=== PATIENT | male | born 1990 | race Caucasian/White ===

== ENCOUNTER 2017-07-08 16:05 | Inpatient (IN) | payer OTHER ==
[~2017-07-08] VITALS: Ht 180.3 cm; Wt 50.3 kg
[2017-07-08 16:11] VITALS: BP 113/69; PULSE 100; RESP 23; O2SAT 100
[2017-07-08] MEDS ORDERED: 0.9% Sodium Chloride 1,000 ML IV ONE ×2 (16:24→17:35)
--- NOTE | 2017-07-08 16:24 | ED.REPORT ---
HPI-Abd Pain M Under 40 Date of Service Jul 08, 2017 ED Provider: Minesh Martínez MD Pt is a 26 y/o male with a history of Crohn's disease who presents to the ED c/ o worsening Crohn's symptoms onset last few months. Additional symptoms include abdominal pain, chills, subjective fever, nausea, decreased appetite, diarrhea, weakness, and hematochezia. He denies vomiting, cough, or back pain. He states he has lost about 30 lbs in the last few months. He denies seeing a doctor for his symptoms. Nursing Notes Stated Complaint: CROHN'S DISEASE, RECTAL BLEEDING, ABD PAIN Chief Complaint: Male Abdominal Pain Nursing Notes Reviewed: Yes Allergies: Coded Allergies: oxycodone (Verified Allergy, Intermediate, VOMIT AND MIGRAINES, 07/08/17) Scheduled PRN Acetaminophen (Extra Strength Non-Aspirin) 500 Mg Tablet 2 EACH PO Q4H PRN PRN For Pain General Time Seen by MD: 16:22 Chief Complaint Abdominal pain Hx Obtained From: Patient Sudden in Onset?: No Symptom Duration: Intermittent Location: : Diffuse Quality: Painful Severity: Current: Moderate Severity: Maximum: Severe Recent Healthcare: No recent doctor visit, No recent hospitalization Similar Sx Previous: Yes Past Medical History Past Medical History Notes: Lived in [place] intermittently for 10 years No PCP Past Medical History Crohn's disease, diagnosed at 18 Smoking History Current Every Day Smoker Social History Alcohol Use: "Social" Drug Use: THC Ambulatory Status Independent Review of Systems Decreased appetite Constitutional: Reports: Chills, Fever (subjective), Weakness - generalized Respiratory: Denies: Non-productive cough, Prod cough, clear GI: Reports: Abdominal pain, Diarrhea, Hematochezia, Nausea, Denies: Vomiting Musculoskeletal: Denies: Back pain Complete sys rev & neg: except as marked. Physical Exam Initial Vital Signs Vital Signs (First) Date Time Temp Pulse Resp B/P Pulse Ox O2 Delivery O2 Flow Rate FiO2 07/08/17 16:11 37.2 100 23 113/69 100 Room Air Initial VS: Reviewed Skin: Warm, Dry, No cyanosis Neurologic: Alert, Oriented, Nonfocal Psychiatric: Mood/affect normal, Behavior normal, Normal thought content General/Constitutional: Awake, Alert Appearance / Presentation: Positive: Cachectic Respiratory / Chest: Atraumatic, Breath sounds NL, Breath sounds = bilat, No respiratory distress Cardiovascular: Heart rate NL, Regular rhythm, Heart sounds NL, No gallop, No murmurs, No rubs Abdomen: Atraumatic, Soft Tenderness/Guarding/Rebound: Positive: Tender diffuse Back: Inspection NL, Full range of motion ENT: Atraumatic, Airway patent Mouth: Positive: Mucous membranes dry Dental / Gums: Positive: Dentition poor Rectum / Perineum: No gross blood, No fecal impaction Hemorrhoid present, non-thrombosed Rectal exam: Tender No stool encountered Mucus present, guaiac negative Interpretation & Diagnostics Lab Results Interpretation Result Diagram: 07/08/17 1659 07/08/17 1659 Test 07/08/17 16:59 07/08/17 17:00 White Blood Count 12.1th/mm3 (3.8-10.1) Red Blood Count 4.44mil/mm3 (4.40-5.80) Hemoglobin 8.4g/dL (13.8-17.2) Hematocrit 28.6% (41.0-50.0) Mean Corpuscular Volume 64.4fL (81-100) Mean Corpuscular Hemoglobin 18.9pg (27.0-35.0) Mean Corpuscular Hemoglobin Concent 29.4% (32.0-37.0) Red Cell Distribution Width 17.9% (12.3-15.4) Platelet Count 444bil/L (150-400) Neutrophils (%) (Auto) 89.6% (40-74) Lymphocytes (%) (Auto) 2.2% (14-46) Monocytes (%) (Auto) 7.8% (4-12) Eosinophils (%) (Auto) 0.1% (0-5) Basophils (%) (Auto) 0.1% (0-3) Erythrocyte Sedimentation Rate 35mm/hr (0-15) Reticulocyte Count,Calculated 1.0% (0.6-2.6) Sodium Level 133mEq/L (134-144) Potassium Level 3.6mEq/L (3.5-5.2) Chloride Level 99mEq/L (97-108) Carbon Dioxide Level 19mmol/L (18-29) Blood Urea Nitrogen 8mg/dL (6-20) Creatinine 0.58mg/dL (0.76-1.27) Estimat Glomerular Filtration Rate 183mL/min (>59) Glucose Level 93mg/dL (60-99) Calcium Level 8.4mg/dL (8.5-10.1) Magnesium Level 1.8mg/dL (1.6-2.6) Iron Level 16ug/dL (35-150) Total Iron Binding Capacity 278ug/dL (250-450) Percent Iron Saturation 6%sat (15-50) Unsaturated Iron Binding 261.5ug/dL Ferritin 22ng/mL (30-400) Total Bilirubin 0.2mg/dL (0.0-1.2) Aspartate Amino Transf (AST/SGOT) 12U/L (0-50) Alanine Aminotransferase (ALT/SGPT) 7U/L (0-44) Alkaline Phosphatase 66U/L (25-150) Total Protein 6.9g/dL (6.4-8.4) Albumin 3.3g/dL (3.4-5.0) Lipase 16U/L (13-60) Hold [place] Top Tube Received (Received) CT Abd / Pelvis Interpretation IMPRESSION: 1. Circumferential wall thickening with adjacent inflammatory stranding involving the terminal ileum, colon and rectum. Finding consistent with coloenteritis which is likely related to inflammatory bowel disease or infectious etiologies. 2. Slightly enlarged appendix which could be related to adjacent terminal ileitis, however early manifestation of appendicitis cannot be excluded by imaging. 3. Small amount of pericholecystic fluid. There is clinical concern for cholecystitis, then abdominal ultrasound should be performed for definitive characterization. 4. Nonspecific periportal edema. Dictated by: Nadine Dalton MD, PhD on 07/08/2017 at 19:17 Approved by: Nadine Dalton MD, PhD on 07/08/2017 at 19:24 Study type: Abdominal CT IV contrast Interpretation / Wet Read by: Interpret - Radiologist Re-Eval/Medical Decision Med Decision/Clinical Course 26-year-old male with a pre-existing diagnosis of Crohn's disease. He is presenting with generalized abdominal pain, bloody diarrhea and recent significant weight loss. Patient has been without medical care for approximately one year. He appears malnourished clinically this is reinforced by low albumin, he also has an iron deficiency anemia. Right lower quadrant is quite tender however imaging is most consistent with inflammatory bowel disease. GI has been consulted, we will not initiate steroids at this point stool studies are stent and he started on oral Cipro and Flagyl. Will be admitted to the hospitalist service with GI consultation. Appendicitis is considered and imaging findings that demonstrate a mildly enlarged appendix are noted however there is significant and inflammation of the entire colon and inflammatory bowel disease is felt to be much more likely the etiology of his symptoms. Source of Hx: Old records Re-Evaluation/Progress : Time of Eval: 20:05 Patient Status: Condition improved Re-Evaluation/Progress Note: Patient rechecked. Discussed plan for admission. Patient understands and agrees with plan. All questions addressed at this time. Consultation #1: Referral / Consult Name: Luís Loredo MD Call Returned at: 20:03 Oracle Programmer Analyst: Agrees with eval, Agrees with plan Note: Discussed pt's case with ethics officer, Dr. Loredo. Recommends Cipro and Flagyl, GI visit, and need for admission. Consultation #2: Referral / Consult Name: Jim Granados MD Consulted With: Hospitalist Call Returned at: 20:13 Oracle Programmer Analyst: Will see patient, Agrees with plan, Accepts admit Note: Discussed pt's case with hospitalist, Dr. Granados. He accepts admission. Consultation #3: Referral / Consult Name: Isabella Grajeda MD Consulted With: Trauma surgeon Call Returned at: 20:16 Oracle Programmer Analyst: Agrees with eval, Agrees with plan Note: Discussed pt's case with trauma surgeon, Dr. Grajeda. Not planning to consult at present after reviewing imaging. Counseled Regarding: Diagnosis, Lab results, Need for admission Patient Discharge & Departure Primary Impression: Exacerbation of Crohn's disease Digestive disease complication type: unspecified complication Qualified Code : K50.919 - Crohn's disease, unspecified, with unspecified complications Additional Impressions: Malnutrition Iron deficiency anemia Iron deficiency anemia type: unspecified iron deficiency Qualified Code: D50.9 - Iron deficiency anemia, unspecified Generalized abdominal pain Disposition: ADMITTED TO HOSPITAL Discharge Condition All VS Reviewed: Yes Condition: Stable Scribe Attestation Portions of this note were transcribed by Nichelle Otto. I, Dr. Martínez, personally performed the history, physical exam and medical decision-making; I reviewed and confirmed the accuracy of the information in the transcribed note. Minesh Martíenz MD Jul 08, 2017 16:24 Nichelle Otto Jul 08, 2017 17:27
[2017-07-08] MEDS ORDERED: Ondansetron 2 mg/mL 2 mL Inj IVPUSH PRN (16:25)
[2017-07-08] MEDS: HYDROmorphone 0.5 mg/0.5 mL iSecure Syringe IVPUSH PRN ×4 (16:39→23:22)
[2017-07-08 17:06] LABS: EOSINOPHILS % (AUTO) 0.1 % (0-5); Mean Corpuscular Volume 64.4 fL (81-100)
[2017-07-08 17:13] LABS: BASOPHILS % (AUTO) 0.1 % (0-3); MONOCYTES % (AUTO) 7.8 % (4-12); Mean Corpuscular Hemoglobin 18.9 pg (27.0-35.0); NEUTROPHILS % (AUTO) 89.6 % (40-74); Platelet Count 444 bil/L (150-400)
[2017-07-08 17:24] LABS: Magnesium 1.8 mg/dL (1.6-2.6)
[2017-07-08] MEDS ORDERED: Iohexol 300 mg/mL 30 mL Inj PO ONE (17:35)
[2017-07-08 17:40] VITALS: BP 103/67; PULSE 95; RESP 16; O2SAT 100
--- NOTE | 2017-07-08 19:26 | DRSVH ---
PROCEDURE: CT ABDOMEN AND PELVIS WITH CONTRAST ([id number]) INDICATIONS: abd pain, chrons TECHNIQUE: After the administration of intravenous contrast, 5 mm thick sections acquired from the diaphragm to the symphysis. 5 mm coronal and sagittal reformats were acquired. For radiation dose reduction, the following was used: automated exposure control, adjustment of mA and/or kV according to patient siz e. COMPARISON: None. FINDINGS: Image quality: Excellent. ABDOMEN: Lung bases: Lung bases are clear. Heart size is normal. Solid organs: Liver and spleen are normal in size and enhancement. Gallbladder is contracted, but g rossly normal. Small amount of pericholecystic fluid is noted.. Biliary system is non dilated. Mueller creas enhances normally. No adrenal nodules. Kidneys demonstrate normal size and enhancement, witho ut hydronephrosis. Peritoneum and bowel: Circumferential wall thickening involving the colon, terminal ileum and rectum noted. Mild inflammatory changes noted adjacent to the colon and terminal ileum. The appendix is f luid-filled and is slightly enlarged measuring 9 mm in diameter. Nodes and vessels: No retroperitoneal or mesenteric adenopathy by size criteria. Aorta and inferior vena cava are normal in size. Miscellaneous: No ventral hernias. PELVIS: Genitourinary: Bladder wall thickness is normal. Miscellaneous: No inguinal hernias or adenopathy. Bones: No suspicious bony lesions. No vertebral body compression fractures. IMPRESSION: 1. Circumferential wall thickening with adjacent inflammatory stranding involving the terminal ileum , colon and rectum. Finding consistent with coloenteritis which is likely related to inflammatory ariadne wel disease or infectious etiologies. 2. Slightly enlarged appendix which could be related to adjacent terminal ileitis, however early man ifestation of appendicitis cannot be excluded by imaging. 3. Small amount of pericholecystic fluid. There is clinical concern for cholecystitis, then abdomin al ultrasound should be performed for definitive characterization. 4. Nonspecific periportal edema. Dictated by: Nadine Dalton MD, PhD on 07/08/2017 at 19:17 Approved by: Nadine Dalton MD, PhD on 07/08/2017 at 19:24
[2017-07-08] MEDS ORDERED: ACET-2561 PO (20:16)
[2017-07-08] MEDS ORDERED: Alum-Mag Hydrox-Simeth 30 mL Suspension PO PRN (20:20)
[2017-07-08] MEDS ORDERED: Polyethylene Glycol (PEG) 17 Gm Powder PO PRN (20:20)
[2017-07-08 20:28] VITALS: BP 108/65; PULSE 85; RESP 16; O2SAT 100
--- NOTE | 2017-07-08 20:33 | PCM.HPMED ---
Subjective Date of Service Jul 08, 2017 Primary Provider: Admitting Physician: Primary Care Physician: Juliane Attending Physician: Admit Status: From the Emergency Department, Full Admit, Non-Telemetry Chief Complaint: Abdominal pain History of Present Illness: David Maravilla is a 26 yo male with a history of Crohn's disease who presents to the Emergency department c/o worsening Crohn's symptoms onset last few months. The abdominal pain is located in the right lower quadrant and sometimes left side as well, sharp in character "like glasses poking me" without any radiation , no clear exacerbating or alleviating factors. Other associated symptoms includes chills, subjective fever, nausea, decreased appetite, diarrhea, weakness, and occasional hematochezia. He denies vomiting, cough, or back pain. He states he has lost about 30 lbs in the last few months. 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 He was on Pentasa but could not swallow the large pills and stopped taking it years ago. Case discussed with Dr Martínez, he spoke to Dr Loredo he recommended antibiotics and admission. No steroids was recommended. Review of Systems: Pertinent positives as noted in HPI. All other systems were reviewed and are negative Allergies Coded Allergies: oxycodone (Verified Allergy, Intermediate, VOMIT AND MIGRAINES, 07/08/17) Home Medications None reported PMH Crohn's disease Surgical History None Family History Both parents had Inflammatory bowel disease Social History Hx Alcohol Use: Yes (once a month) Hx Substance Use: Yes (marijuana) Hx Tobacco Use: Yes Smoking Status: Current Every Day Smoker Living Arrangement: with Family Exam Vital Signs Vital Sign - Last Date Time Temp Pulse Resp B/P Pulse Ox O2 Delivery O2 Flow Rate FiO2 07/08/17 17:40 95 16 103/67 100 07/08/17 16:11 37.2 Room Air Exam General: Alert, Oriented X3, Cooperative, No acute Distress Eyes: PERRLA, Scleral Anicteric Mouth: Mouth Normal, Mucous Membranes Moist/[place]. No oral ulcers Neck: Supple, no Thyromegaly, trachea central. Chest & Lungs: Clear to auscultation & percussion, No adventitious breath sounds, no crackles, no wheeze Cardiovascular: Normal S1, Normal S2, No Murmurs/Rubs/Gallops, Regular Rate/ Rhythm, Pulses: Radial (present and equal), Dorsalis Pedi (present and equal) Abdomen: Soft, mild tenderness in the right lower quad, no rebound or guarding, Non-distended, Normoactive bowel tones. Musculoskeletal: Unremarkable. Normal range of motion, no swollen or erythematous joints Extremities: No edema, no cyanosis, no clubbing. Skin: No rashes. Warm and dry, no erythematous areas Neurological: Grossly neurologically intact, Normal Speech, Sensation Intact Lymphatic: Lymph nodes Cervical and Axillary not palpable. Lab and Diagnostics Labs Laboratory Tests Test 07/08/17 16:59 07/08/17 17:00 White Blood Count 12.1th/mm3 (3.8-10.1) Red Blood Count 4.44mil/mm3 (4.40-5.80) Hemoglobin 8.4g/dL (13.8-17.2) Hematocrit 28.6% (41.0-50.0) Mean Corpuscular Volume 64.4fL (81-100) Mean Corpuscular Hemoglobin 18.9pg (27.0-35.0) Mean Corpuscular Hemoglobin Concent 29.4% (32.0-37.0) Red Cell Distribution Width 17.9% (12.3-15.4) Platelet Count 444bil/L (150-400) Neutrophils (%) (Auto) 89.6% (40-74) Lymphocytes (%) (Auto) 2.2% (14-46) Monocytes (%) (Auto) 7.8% (4-12) Eosinophils (%) (Auto) 0.1% (0-5) Basophils (%) (Auto) 0.1% (0-3) Sodium Level 133mEq/L (134-144) Potassium Level 3.6mEq/L (3.5-5.2) Chloride Level 99mEq/L (97-108) Carbon Dioxide Level 19mmol/L (18-29) Blood Urea Nitrogen 8mg/dL (6-20) Creatinine 0.58mg/dL (0.76-1.27) Estimat Glomerular Filtration Rate 183mL/min (>59) Glucose Level 93mg/dL (60-99) Calcium Level 8.4mg/dL (8.5-10.1) Magnesium Level 1.8mg/dL (1.6-2.6) Total Bilirubin 0.2mg/dL (0.0-1.2) Aspartate Amino Transf (AST/SGOT) 12U/L (0-50) Alanine Aminotransferase (ALT/SGPT) 7U/L (0-44) Alkaline Phosphatase 66U/L (25-150) Total Protein 6.9g/dL (6.4-8.4) Albumin 3.3g/dL (3.4-5.0) Lipase 16U/L (13-60) Hold [place] Top Tube Received (Received) Result Diagram: 07/08/17 1659 07/08/17 1659 X-Rays, CTs and MRIs CT ABDOMEN AND PELVIS WITH CONTRAST 07/08 IMPRESSION: 1. Circumferential wall thickening with adjacent inflammatory stranding involving the terminal ileum, colon and rectum. Finding consistent with coloenteritis which is likely related to inflammatory bowel disease or infectious etiologies. 2. Slightly enlarged appendix which could be related to adjacent terminal ileitis, however early manifestation of appendicitis cannot be excluded by imaging. 3. Small amount of pericholecystic fluid. There is clinical concern for cholecystitis, then abdominal ultrasound should be performed for definitive characterization. 4. Nonspecific periportal edema. Dictated by: Nadine Dalton MD, PhD on 07/08/2017 at 19:17 Approved by: Nadine Dalton MD, PhD on 07/08/2017 at 19:24 Assessment & Plan David Maravilla is a 26 yo male with a history of Crohn's disease who presents to the Emergency department c/o worsening Crohn's symptoms 1. Acute on Chronic abdominal pain secondary to Crohn's colitis. Present on admission Differential diagnosis includes Appendicitis (right lower quadrant location with CT scan unable to rule this out). Patient was on Pentasa but could no tolerate it and has been off this medications for years - nothing by mouth for now - empiric antibiotics with Levaquin and Flagyl IV - stool PCR studies - Gastroenterology consulted, may consider endoscopy to further evaluate - DVT prophylaxis due to increased risk for VTE with Crohn 2 Hyponatremia, Mild. Present on admission Likely represents hypovolemia based on patient's clinical picture - continue IV fluids with Normal saline 3 Malnutrition. Present on admission Albumin 3.3 and BMI 15.4. Patient has been having poor appetite - Nutritional consult requested 4 Chronic Microcytic Anemia Likely Iron deficiency anemia secondary to chronic slow GI bleeding - Iron studies ordered - consider Iron supplementations 5 Nicotine dependence Cessation discussed and encouraged. Patient states he is trying to quit - Nicotine patch upon request - Acetaminophen as needed for mild pain/fever/headache - Bowel regimen as needed - Antiemetic as needed Patient admitted under inpatient status with expected length of stay > 2 midnights for severity of present symptoms, complexities of treatment plan and risk for adverse event . Resuscitation Status: CPR: Attempt Resuscitation Jmi Granados MD Jul 08, 2017 20:33
[2017-07-08] MEDS: 0.9% Sodium Chloride 1,000 ML IV SCH (20:37)
[2017-07-08 20:52] LABS: Unsaturated Iron Binding 261.5 ug/dL
[2017-07-08 21:57] VITALS: BP 103/57; PULSE 75; RESP 16; O2SAT 98
--- NOTE | 2017-07-09 00:15 | NUR ---
Admit to 1026 Pt arrived from ED fully alert and oriented, able to transfer to bed with steady gait. C/o mild abdominal pain tolerable. IV infusing. Reports frequent episodes of diarrhea. Oriented to call light, SCDs, NPO status, hospital routines, plan of care; hourly rounding ongoing.
[2017-07-09 00:32] VITALS: BP 100/57; PULSE 58; RESP 16; O2SAT 98
[2017-07-09] MEDS: Heparin 5,000 Unit/mL Inj SUBQ SCH ×3 (00:35→16:22)
[2017-07-09] MEDS: metroNIDAZOLE Inj 500 MG in IV Premix 1 EACH IV SCH ×3 (02:20→16:21)
[2017-07-09] MEDS: HYDROmorphone 0.5 mg/0.5 mL iSecure Syringe IVPUSH PRN ×5 (02:24→20:05)
[2017-07-09] MEDS: Ondansetron 2 mg/mL 2 mL Inj IVPUSH PRN ×5 (02:30→20:54)
[2017-07-09 05:13] VITALS: BP 95/47; PULSE 72; RESP 16; O2SAT 97
--- NOTE | 2017-07-09 05:16 | NUR ---
Pain Abdominal pain adequately controlled with IV Dilaudid about every 2-3 hours. Pt ambulates safely in room for frequent BR trips, diarrhea continues. Hourly rounding ongoing.
[2017-07-09] MEDS: 0.9% Sodium Chloride 1,000 ML IV SCH (06:46)
[2017-07-09 07:34] LABS: BASOPHILS % (AUTO) 0.2 % (0-3); EOSINOPHILS % (AUTO) 0.3 % (0-5); MONOCYTES % (AUTO) 10.7 % (4-12); Mean Corpuscular Hemoglobin 18.8 pg (27.0-35.0); Mean Corpuscular Volume 65.3 fL (81-100); NEUTROPHILS % (AUTO) 82.9 % (40-74); Platelet Count 379 bil/L (150-400)
[2017-07-09] MEDS: levoFLOXacin Inj 750 MG in IV Premix 1 EACH IV SCH (08:19)
[2017-07-09 09:14] VITALS: BP 100/58; RESP 16; O2SAT 100
--- NOTE | 2017-07-09 11:01 | PCM.PNMED ---
Subjective Date of Service Jul 09, 2017 Subjective Patient seen and examined. Looks weak. Vitals noted Exam Vital Signs Vital Sign - Last Date Time Temp Pulse Resp B/P Pulse Ox O2 Delivery O2 Flow Rate FiO2 07/09/17 09:14 36.9 16 100/58 100 Room Air 07/09/17 05:13 72 Intake and Output 07/08/17 07/08/17 07/09/17 Cumulative From/Thru 15:00 23:00 07:00 07/08/17 16:11 - 07/09/17 06:47 Intake Total 2000 ml 1045 ml 3045 ml Balance 2000 ml 1045 ml 3045 ml Intake Oral 0 ml 0 ml IV Total 2000 ml 1045 ml 3045 ml # Voids 3 3 # Bowel Movements 3 3 Exam General: Alert, Oriented X3, Cooperative, Cachectic Chest & Lungs: Clear to auscultation & percussion, No adventitious breath sounds, no crackles, no wheeze Cardiovascular: Normal S1, Normal S2, No Murmurs/Rubs/Gallops, Regular Rate/ Rhythm, Pulses: Radial (present and equal), Dorsalis Pedi (present and equal) Abdomen: Soft, mild tenderness in the right lower quad, no rebound or guarding, Non-distended, Normoactive bowel tones. Lymphatic: Lymph nodes Cervical and Axillary not palpable. Lab and Diagnostics Result Diagram: 07/09/17 0711 07/09/17 0711 X-Rays, CTs and MRIs CT ABDOMEN AND PELVIS WITH CONTRAST 07/08 IMPRESSION: 1. Circumferential wall thickening with adjacent inflammatory stranding involving the terminal ileum, colon and rectum. Finding consistent with coloenteritis which is likely related to inflammatory bowel disease or infectious etiologies. 2. Slightly enlarged appendix which could be related to adjacent terminal ileitis, however early manifestation of appendicitis cannot be excluded by imaging. 3. Small amount of pericholecystic fluid. There is clinical concern for cholecystitis, then abdominal ultrasound should be performed for definitive characterization. 4. Nonspecific periportal edema. Dictated by: Nadine Dalton MD, PhD on 07/08/2017 at 19:17 Approved by: Nadine Dalton MD, PhD on 07/08/2017 at 19:24 Assessment & Plan David Maravilla is a 26 yo male with a history of Crohn's disease who presents to the Emergency department c/o worsening Crohn's symptoms 1. Acute on Chronic abdominal pain secondary to Crohn's colitis. Present on admission Differential diagnosis includes Appendicitis (right lower quadrant location with CT scan unable to rule this out). Patient was on Pentasa but could no tolerate it and has been off this medications for years - nothing by mouth for now - empiric antibiotics with Levaquin and Flagyl IV - stool PCR studies - Gastroenterology consulted, may consider endoscopy to further evaluate - DVT prophylaxis due to increased risk for VTE with Crohn 2 Hyponatremia, Mild. Present on admission Likely represents hypovolemia based on patient's clinical picture - continue IV fluids with Normal saline 3 Malnutrition. Present on admission Albumin 3.3 and BMI 15.4. Patient has been having poor appetite - Nutritional consult requested - D5NS for now 4 Chronic Microcytic Anemia Likely Iron deficiency anemia secondary to chronic slow GI bleeding - Iron studies ordered - consider Iron supplementations 5 Nicotine dependence Cessation discussed and encouraged. Patient states he is trying to quit - Nicotine patch upon request - Acetaminophen as needed for mild pain/fever/headache - Bowel regimen as needed - Antiemetic as needed Patient admitted under inpatient status with expected length of stay > 2 midnights for severity of present symptoms, complexities of treatment plan and risk for adverse event . VTE Mechanical Devices: Intermittant Pneumatic CD Resuscitation Status: CPR: Attempt Resuscitation Time spent 35 mins Noble Graham MD Jul 09, 2017 11:01
[2017-07-09] MEDS: Dextrose 5% 0.9% NaCl 1,000 ML IV SCH ×2 (11:35→19:30)
--- NOTE | 2017-07-09 12:06 | NUR ---
Social Work: Initial Assessment/Multidisciplinary Rounds D: EMR reviewed. Please see Initial Assessment linked to this note for more information. Pt is a 26 year old male admitted [place] for crohns disease, abdominal pain with no readmit risk score at this time. Pt has no insurance or PCP. Pt discussed in multidisciplinary rounds, pt to receive GI consult. SW to see for insurance status. Pt will likely need PCP follow up after this admission. SW met with pt and at bedside to conduct initial assessment. Pt was alert and oriented x3. SW explained role and wrote phone number on white board. SW provided [facility] Discharge Planning Checklist and encouraged pt to contact SW for any discharge planning questions. Pt lives at home with his spouse and children in [place]. Pt is independent with all ADLs and self-care though he does need assistance with housekeeping due to weakness. As of last week pt is no longer able to go for walks with his . Pt owns no DME but would like some at home. SW discussed purchasing DME or using loaner closets to obtain DME as finances are a concern. Pt does not drive, relies on the bus or friends for transportation. Pt declined DPOA on admission. SW discussed insurance. Pt reports that he had [employer] in the past but he did not have stable housing at that time. SW made referral to [facility] and informed them of this. [facility] reports they plan to see pt today and will assist with reinstatement of [employer] as able. SW also discussed financial professional application and patient financial services through the hospital, application provided and pt oriented to contact information in Patient Guide. All agreeable. SW will continue to follow for d/c planning needs. Pt anticipated to d/c home with family, bus or friends to transport. Plan written on board. A: Pt who is independent at baseline and has the capacity for self-care though he is increasingly weak. P: Pt anticipated to discharge home by bus or friends to transport via POV. No SW needs identified, no MD orders received at this time. SW will continue to follow for needs until time of discharge. KEILY Martinez Addendum: 07/09/17 at 1215 by VANESSA TARANGO Amended: Links added.
--- NOTE | 2017-07-09 13:42 | PCM.CHPMED ---
Subjective Date of Service: Jul 09, 2017 Provider requesting consult: Zaid Martínez MD Primary Physician: Admitting Physician: Jim Granados MD Primary Care Physician: Juliane Attending Physician: Noble Graham MD Admit Status: From the Emergency Department Chief Complaint: Chief Complaint: Abdominal pain History of Present Illness: David Maravilla is a 26-year-old male with a history of Crohn's disease diagnosed at age 18 and iron deficiency anemia who presented to the ED with the complaint of worsening abdominal pain, cramping and bloody diarrhea for the last 3-6 months. Associated symptoms include chills, subjective fevers, nausea, dizziness, decreased appetite with weight loss and generalized weakness. He states that he has been off of all medication for about a year due to lack of health insurance. Over the course of the last year his symptoms have gradually increased and now he states that he can barely do anything. He notes shortness of breath and fatigue with minimal activity. On average he states that he has four bowel movements per day that are bloody and several more without noticeable blood. 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 He describes his abdominal pain as sharp and nonradiating. The pain is not well localized, areas of intensity alternate and he has not appreciated any aggravating or alleviating factors. Currently he reports maximum pain in the LLQ but at presentation he reported pain worse in the RLQ. However, imaging is most consistent with inflammatory bowel disease. Patient has been without medical care for approximately one year. He appears malnourished clinically this is reinforced by low albumin, he also has an iron deficiency anemia. He last saw a Pick Up Driver when he was 18 years old. He was on Pentasa but could not swallow the large pills and stopped taking it years ago. Review of Systems: A comprehensive review of systems was conducted with the patient and found to be negative except as above in the History of Present Illness. PMH Past Medical History Crohn's disease, diagnosed at 18 Iron deficiency anemia . Surgical History None . Home Medications No active medications. Patient has taken Pentasa (mesalamine) 1,000mg qid in the past, last taken ~one year ago. Allergies: Coded Allergies: oxycodone (Verified Allergy, Intermediate, VOMIT AND MIGRAINES, 8/23/17) Family History Family History Both parents had Inflammatory bowel disease . Social History Hx Alcohol Use: Yes (once a month)Hx Substance Use: Yes (marijuana)Hx Tobacco Use: Yes Smoking Status: Current Every Day Smoker Living Arrangement: with Family Additional Information Originally from [place]. Lives locally with his . Exam Vital Signs Vital Sign - Last Date Time Temp Pulse Resp B/P Pulse Ox O2 Delivery O2 Flow Rate FiO2 07/09/17 05:13 36.8 72 16 95/47 97 Room Air Intake and Output 07/08/17 07/08/17 07/09/17 Cumulative From/Thru 15:00 23:00 07:00 07/08/17 16:11 - 07/09/17 06:47 Intake Total 2000 ml 1045 ml 3045 ml Balance 2000 ml 1045 ml 3045 ml Intake Oral 0 ml 0 ml IV Total 2000 ml 1045 ml 3045 ml # Voids 3 3 # Bowel Movements 3 3 General: Very thin young male, appears malnourished but in no acute distress. Appropriately interactive. HEENT: Normocephalic, atraumatic. PERRLA, EOMI. Anicteric sclerae. Dental caries w/multiple missing teeth, no obvious abscess. Mucous membranes dry Neck: Neck supple with full range of motion. No lymphadenopathy or thyromegaly. Lungs: Clear to auscultation bilaterally with no crackles, wheezes, or rhonchi. Cardiovascular: Regular rate/rhythm, Normal S1, Normal S2, No murmurs/rubs/ gallops Abdomen: Soft, non-distended, exquisitely tender to palpation diffusely ciara LLQ , No masses. Hypoactive bowel tones. Extremities: Muscle wasting upper/lower extremities. No edema. Skin: Pale, warm and dry without obvious rashes or ulcerations. Neurological: AOx3, no focal deficit. Normal speech. Lab and Diagnostics Labs Laboratory Tests Test 07/08/17 16:59 07/08/17 17:00 07/08/17 21:00 07/09/17 07:11 White Blood Count 12.1th/mm3 (3.8-10.1) Red Blood Count 4.44mil/mm3 (4.40-5.80) Hemoglobin 8.4g/dL (13.8-17.2) Hematocrit 28.6% (41.0-50.0) Mean Corpuscular Volume 64.4fL (81-100) Mean Corpuscular Hemoglobin 18.9pg (27.0-35.0) Mean Corpuscular Hemoglobin Concent 29.4% (32.0-37.0) Red Cell Distribution Width 17.9% (12.3-15.4) Platelet Count 444bil/L (150-400) Neutrophils (%) (Auto) 89.6% (40-74) Lymphocytes (%) (Auto) 2.2% (14-46) Monocytes (%) (Auto) 7.8% (4-12) Eosinophils (%) (Auto) 0.1% (0-5) Basophils (%) (Auto) 0.1% (0-3) Erythrocyte Sedimentation Rate 35mm/hr (0-15) Reticulocyte Count,Calculated 1.0% (0.6-2.6) Sodium Level 133mEq/L (134-144) Potassium Level 3.6mEq/L (3.5-5.2) Chloride Level 99mEq/L (97-108) Carbon Dioxide Level 19mmol/L (18-29) Blood Urea Nitrogen 8mg/dL (6-20) Creatinine 0.58mg/dL (0.76-1.27) Estimat Glomerular Filtration Rate 183mL/min (>59) Glucose Level 93mg/dL (60-99) Calcium Level 8.4mg/dL (8.5-10.1) Magnesium Level 1.8mg/dL (1.6-2.6) Iron Level 16ug/dL (35-150) Total Iron Binding Capacity 278ug/dL (250-450) Percent Iron Saturation 6%sat (15-50) Unsaturated Iron Binding 261.5ug/dL Ferritin 22ng/mL (30-400) Total Bilirubin 0.2mg/dL (0.0-1.2) Aspartate Amino Transf (AST/SGOT) 12U/L (0-50) Alanine Aminotransferase (ALT/SGPT) 7U/L (0-44) Alkaline Phosphatase 66U/L (25-150) Total Protein 6.9g/dL (6.4-8.4) Albumin 3.3g/dL (3.4-5.0) Lipase 16U/L (13-60) Hold [place] Top Tube Received (Received) Hold Urine Received (Received) Microbiology 07/08/17 Stool PCR - Negative. Result Diagram: 07/08/17 1659 07/08/17 1659 X-Rays, CTs and MRIs 07/08/17 - CT ABDOMEN AND PELVIS WITH CONTRAST IMPRESSION: 1. Circumferential wall thickening with adjacent inflammatory stranding involving the terminal ileum, colon and rectum. Finding consistent with coloenteritis which is likely related to inflammatory bowel disease or infectious etiologies. 2. Slightly enlarged appendix which could be related to adjacent terminal ileitis, however early manifestation of appendicitis cannot be excluded by imaging. 3. Small amount of pericholecystic fluid. There is clinical concern for cholecystitis, then abdominal ultrasound should be performed for definitive characterization. 4. Nonspecific periportal edema. Approved by: Nadine Dalton MD, PhD on 07/08/2017 at 19:24 Assessment & Plan Assessment 26-year-old male with a history of Crohn's disease diagnosed at age 18 who presented to the ED with the complaint of worsening abdominal pain, cramping and bloody diarrhea for the last 3-6 months. Suspect Crohns flare but will need objective data to support diagnosis. We have no records at this time. Acute on chronic abdominal pain secondary to Crohn's colitis flare. -Differential diagnosis includes appendicitis (right lower quadrant location with CT scan unable to rule this out) as well as alternative causes for colitis including infection. Although this is less likely as patient has a known history of Crohn's and clinically no evidence of infection. He has been on Pentasa in the past but states that he could not tolerate it and had poor medical coverage. He has been off of any medication for approximately one year and intermittently on-off medication for a few years prior to that with a gradual worsening in his symptoms in that time. RECOMMENDATIONS: -Clear liquid diet today. Start bowel prep this afternoon, EGD and colonoscopy tomorrow. -Continue empiric antibiotics with Levaquin and Flagyl IV - restart pentasa 1g po qid - after colonoscopy given stool studies neg, anticipate to start iv solumedrol if colon c/w crohns dz. Additional problems managed per primary medicine team: Hyponatremia, Mild. Chronic Microcytic Anemia Malnutrition. Nicotine dependence Problems: Pain Evaluation: Adequate Pain Control VTE Mechanical Devices: Intermittant Pneumatic CD Resuscitation Status: CPR: Attempt Resuscitation Ena Morocho DO Jul 09, 2017 07:35 Luís Loredo MD Jul 09, 2017 15:49
--- NOTE | 2017-07-09 15:05 | NUR ---
NUTRITION ASSESSMENT: ASSESS: 26 YO male admitted for abdominal pain, Crohn's colitis, iron deficiency anemia. Pt on clear liquid diet with plan for colonoscopy and EGD 07/10. PMHx: Crohns disease, iron deficiency anemia LABS: Reviewed. Cr 0.52, Ca 8.3, Alb 3.3. MEDS: Reviewed. GI: BM x 3 today. SKIN: Muscle and fat wasting in upper and lower extremities. CURRENT WT: 47.9 kg, BMI 14.7. IBW 78.2 kg. UBW: 54.5 DIET: Clear liquids. EST. NEEDS: 6500-4483 kcals (35-40 kcals/kg BW), 95-115 g protein (1.2-1.5 g/kg IBW) NUTRITION DIAGNOSIS: 1.) Severe malnutrition in the context of chronic illness related to Crohns disease as evidenced by BMI of 14.7, reported poor po intake times 2 months, severe muscle and fat wasting and severe weight loss of 12.2% x 2 months. NUTRITION INTERVENTION: 1.) Will add ensure clear and Gelatein plus on all trays while pt is on clear liquids. 2.) Will add vanilla ensure once diet has been advanced beyond clear liquids. MONITOR / EVAL: PO intake, diet advancement/tolerance, labs, weights, nutritional status. Follow per high nutritional risk guidelines. Addendum: 07/09/17 at [address] ASSESS: Per diet recall with pt, pt only eats a piece of toast for breakfast and then has dinner and snack before bed. Pt has difficulty chewing some foods as pt is missing a number of teeth. Intervention: 3.) High calorie / High protein, Crohn's diet, and modifying diet for missing teeth (soft foods) education provided.
[2017-07-09] MEDS ORDERED: PEG/Electrolytes 4,000 mL Solution PO ONE (16:00)
[2017-07-09 16:13] VITALS: BP 100/65; PULSE 64; RESP 16; O2SAT 100
[2017-07-09] MEDS: Mesalamine 500 mg CR Capsule PO SCH ×3 (18:27→20:02)
--- NOTE | 2017-07-09 19:07 | NUR ---
Pain, Bowel Prep Patient continues to have some pain to the abdomen this shift. Patient reports pain is kept within a tolerable level with ordered pain medication. Bowel prep administered to patient as ordered. Patient reports he is able to tolerate some prep, but that drinking too much makes him nauseated, with some vomit produced despite anti-nausea medication. Patient states "this stuff is working, I've had five trips to the bathroom in a half hour". Patient reports very loose stool.
[2017-07-09 20:18] VITALS: BP 106/62; PULSE 58; RESP 16; O2SAT 100
[2017-07-10] VITALS (10 sets, daily range): BP systolic 95–105; BP diastolic 57–70; PULSE 54–77; RESP 12–20; O2SAT 98–100
[2017-07-10] MEDS: metroNIDAZOLE Inj 500 MG in IV Premix 1 EACH IV SCH ×3 (00:43→18:41)
[2017-07-10] MEDS: Heparin 5,000 Unit/mL Inj SUBQ SCH (00:45)
[2017-07-10] MEDS: Dextrose 5% 0.9% NaCl 1,000 ML IV SCH ×2 (00:46→18:40)
[2017-07-10] MEDS: Ondansetron 2 mg/mL 2 mL Inj IVPUSH PRN ×3 (00:56→11:01)
[2017-07-10] MEDS: HYDROmorphone 0.5 mg/0.5 mL iSecure Syringe IVPUSH PRN ×2 (00:56→05:43)
--- NOTE | 2017-07-10 02:08 | NUR ---
Nausea/ stools Patient states marijuana use at home for decreasing nausea and increasing appetite, requesting more information on alternatives available to him here and at home. Also states that Dilaudid causes severe nausea, prefers morphine. Unable to complete bowel prep however has had several clear stools. Close monitoring of pain and nausea, intentional rounding. Addendum: 07/10/17 at 0605 by JERMAIN ESTRELLA RN Not tolerating pain medication at all, consistently causes nausea.
[2017-07-10 06:05] LABS: BASOPHILS % (AUTO) 0.5 % (0-3); EOSINOPHILS % (AUTO) 1.4 % (0-5); MONOCYTES % (AUTO) 13.2 % (4-12); Mean Corpuscular Hemoglobin 19.3 pg (27.0-35.0); Mean Corpuscular Volume 64.8 fL (81-100); NEUTROPHILS % (AUTO) 75.1 % (40-74); Platelet Count 327 bil/L (150-400)
[2017-07-10] MEDS: Mesalamine 500 mg CR Capsule PO SCH ×4 (06:30→21:17)
[2017-07-10] MEDS ORDERED: Promethazine 25 mg/mL Inj IM PRN (08:35)
--- NOTE | 2017-07-10 08:48 | PCM.PNMED ---
Subjective Date of Service Jul 10, 2017 Subjective Patient seen and examined. In pain. Hgb dropped. Vitals noted. Exam Vital Signs Vital Sign - Last Date Time Temp Pulse Resp B/P Pulse Ox O2 Delivery O2 Flow Rate FiO2 07/10/17 05:22 36.6 63 20 100/57 100 Room Air Intake and Output 07/09/17 07/09/17 07/10/17 Cumulative From/Thru 15:00 23:00 07:00 07/08/17 16:11 - 07/10/17 06:45 Intake Total 1040 ml 2398 ml 6483 ml Output Total 400 ml 400 ml Balance 1040 ml 1998 ml 6083 ml Intake Oral 1040 ml 250 ml 1290 ml IV Total 2148 ml 5193 ml Output Urine Total 400 ml 400 ml # Voids 11 14 # Bowel Movements 3 Exam General: Alert, Oriented X3, Cooperative, Cachectic Chest & Lungs: Clear to auscultation & percussion, No adventitious breath sounds, no crackles, no wheeze Cardiovascular: Normal S1, Normal S2, No Murmurs/Rubs/Gallops, Regular Rate/ Rhythm, Pulses: Radial (present and equal), Dorsalis Pedi (present and equal) Abdomen: Soft, mild tenderness in the right lower quad, no rebound or guarding, Non-distended, Normoactive bowel tones. Lymphatic: Lymph nodes Cervical and Axillary not palpable. Lab and Diagnostics Result Diagram: 07/10/17 0525 07/10/17 0525 X-Rays, CTs and MRIs CT ABDOMEN AND PELVIS WITH CONTRAST 07/08 IMPRESSION: 1. Circumferential wall thickening with adjacent inflammatory stranding involving the terminal ileum, colon and rectum. Finding consistent with coloenteritis which is likely related to inflammatory bowel disease or infectious etiologies. 2. Slightly enlarged appendix which could be related to adjacent terminal ileitis, however early manifestation of appendicitis cannot be excluded by imaging. 3. Small amount of pericholecystic fluid. There is clinical concern for cholecystitis, then abdominal ultrasound should be performed for definitive characterization. 4. Nonspecific periportal edema. Dictated by: Nadine Dalton MD, PhD on 07/08/2017 at 19:17 Approved by: Nadine Dalton MD, PhD on 07/08/2017 at 19:24 Assessment & Plan David Maravilla is a 26 yo male with a history of Crohn's disease who presents to the Emergency department c/o worsening Crohn's symptoms 1. Acute on Chronic abdominal pain secondary to Crohn's colitis. Present on admission Differential diagnosis includes Appendicitis (right lower quadrant location with CT scan unable to rule this out). Patient was on Pentasa but could no tolerate it and has been off this medications for years - nothing by mouth for now - empiric antibiotics with Levaquin and Flagyl IV - started on mesalamine - stool PCR studies -ve for infection - pain control with morphine - Gastroenterology consulted, colonoscopy and endoscopy today. 2 Hyponatremia, Mild. Present on admission, resolved Likely represents hypovolemia based on patient's clinical picture - continue IV fluids with Normal saline 3 Malnutrition. Present on admission Albumin 3.3 and BMI 15.4. Patient has been having poor appetite - Nutritional consult requested - D5NS for now 4 Chronic Microcytic Anemia Likely Iron deficiency anemia secondary to chronic slow GI bleeding - Iron studies ordered - consider Iron supplementations 5 Nicotine dependence Cessation discussed and encouraged. Patient states he is trying to quit - Nicotine patch upon request - Acetaminophen as needed for mild pain/fever/headache - Bowel regimen as needed - Antiemetic as needed Patient admitted under inpatient status with expected length of stay > 2 midnights for severity of present symptoms, complexities of treatment plan and risk for adverse event . VTE Mechanical Devices: Intermittant Pneumatic CD Resuscitation Status: CPR: Attempt Resuscitation Time spent 35 mins Noble Graham MD Jul 10, 2017 08:48
[2017-07-10] MEDS ORDERED: Promethazine Inj 12.5 MG in Dextrose 5%-Pha MIX 50 ML IV PRN (10:00)
[2017-07-10] MEDS: levoFLOXacin Inj 750 MG in IV Premix 1 EACH IV SCH (10:18)
[2017-07-10] MEDS ORDERED: 0.9% Sodium Chloride 250 ML ONE (10:30)
--- NOTE | 2017-07-10 11:14 | PCM.PNMED ---
Subjective Date of Service Jul 10, 2017 Subjective GASTROENTEROLOGY PROGRESS NOTE: Attending Physician: Luís Loredo MD Resident Physician: Ena Morocho DO Bowel prep completed at approximately 20:30. Patient states that he drank as much of the prep as he could and he is without complaint this morning. He continues to report abdominal pain and cramping that is poorly localized. Pain is tolerable and well controlled with IV morphine. He denies fever, chills, nausea, and vomiting. He states that he is hungry and looking forward to eating after the colonoscopy. Exam Vital Signs Vital Sign - Last Date Time Temp Pulse Resp B/P Pulse Ox O2 Delivery O2 Flow Rate FiO2 07/10/17 05:22 36.6 63 20 100/57 100 Room Air Intake and Output 07/09/17 07/09/17 07/10/17 Cumulative From/Thru 15:00 23:00 07:00 07/08/17 16:11 - 07/10/17 06:45 Intake Total 1040 ml 2398 ml 6483 ml Output Total 400 ml 400 ml Balance 1040 ml 1998 ml 6083 ml Intake Oral 1040 ml 250 ml 1290 ml IV Total 2148 ml 5193 ml Output Urine Total 400 ml 400 ml # Voids 11 14 # Bowel Movements 3 Exam General: Very thin young male, appears malnourished but in no acute distress. Appropriately interactive. HEENT: Normocephalic, atraumatic. PERRLA, EOMI. Anicteric sclerae. Dental caries w/multiple missing teeth, no obvious abscess. Mucous membranes dry Lungs: Clear to auscultation bilaterally with no crackles, wheezes, or rhonchi. Cardiovascular: Regular rate/rhythm. No murmurs/rubs/gallops Abdomen: Soft, non-distended, exquisitely tender to palpation diffusely. No masses. Hypoactive bowel tones. Extremities: Muscle wasting upper/lower extremities. No edema. Skin: Pale, warm and dry without obvious rashes or ulcerations. Neurological: AOx3, no focal deficit. Normal speech. IVs and Medications Medications Reviewed: Medications were reviewed in detail Lab and Diagnostics Laboratory Tests Test 07/10/17 05:25 White Blood Count 4.2th/mm3 (3.8-10.1) Red Blood Count 3.84mil/mm3 (4.40-5.80) Hemoglobin 7.4g/dL (13.8-17.2) Hematocrit 24.9% (41.0-50.0) Mean Corpuscular Volume 64.8fL (81-100) Mean Corpuscular Hemoglobin 19.3pg (27.0-35.0) Mean Corpuscular Hemoglobin Concent 29.7% (32.0-37.0) Red Cell Distribution Width 17.8% (12.3-15.4) Platelet Count 327bil/L (150-400) Neutrophils (%) (Auto) 75.1% (40-74) Lymphocytes (%) (Auto) 9.6% (14-46) Monocytes (%) (Auto) 13.2% (4-12) Eosinophils (%) (Auto) 1.4% (0-5) Basophils (%) (Auto) 0.5% (0-3) Sodium Level 138mEq/L (134-144) Potassium Level 3.7mEq/L (3.5-5.2) Chloride Level 106mEq/L (97-108) Carbon Dioxide Level 21mmol/L (18-29) Blood Urea Nitrogen 3mg/dL (6-20) Creatinine 0.55mg/dL (0.76-1.27) Estimat Glomerular Filtration Rate 195mL/min (>59) Glucose Level 107mg/dL (60-99) Calcium Level 8.0mg/dL (8.5-10.1) Microbiology 07/08/17 Stool PCR - NEGATIVE Result Diagram: 07/10/17 0525 07/10/17 0525 X-Rays, CTs and MRIs 07/08/17 - CT ABDOMEN AND PELVIS WITH CONTRAST IMPRESSION: 1. Circumferential wall thickening with adjacent inflammatory stranding involving the terminal ileum, colon and rectum. Finding consistent with coloenteritis which is likely related to inflammatory bowel disease or infectious etiologies. 2. Slightly enlarged appendix which could be related to adjacent terminal ileitis, however early manifestation of appendicitis cannot be excluded by imaging. 3. Small amount of pericholecystic fluid. There is clinical concern for cholecystitis, then abdominal ultrasound should be performed for definitive characterization. 4. Nonspecific periportal edema. Approved by: Nadine Dalton MD, PhD on 07/08/2017 at 19:24 Assessment & Plan 26-year-old male with a history of Crohn's disease diagnosed at age 18 who presented to the ED with the complaint of worsening abdominal pain, cramping and bloody diarrhea for the last 3-6 months. Suspect Crohns flare but will need objective data to support diagnosis. We have no records at this time. Acute on chronic abdominal pain likely secondary to Crohn's colitis flare. -Differential diagnosis includes appendicitis (right lower quadrant location with CT scan unable to rule this out) as well as alternative causes for colitis including infection. Although this is less likely as patient has a reports a history of Crohn's and clinically without evidence of infection. He has been on Pentasa in the past but states that he could not tolerate it and had poor medical coverage. He has been off of any medication for approximately one year and intermittently on-off medication for a few years prior to that with a gradual worsening in his symptoms in that time. RECOMMENDATIONS: -EGD and colonoscopy today -Continue empiric antibiotics with Levaquin and Flagyl IV pending results of colonoscopy. -Continue Pentasa 1g po qid -If colonoscopy findings consistent with Crohn's disease: -Will likely start IV Solu-medrol Additional problems managed per primary medicine team: Hyponatremia, Mild. Chronic Microcytic Anemia Malnutrition. Nicotine dependence . VTE Mechanical Devices: Intermittant Pneumatic CD Resuscitation Status: CPR: Attempt Resuscitation Ena Morocho DO Jul 10, 2017 08:58 Luís Loredo MD Jul 10, 2017 12:52
--- NOTE | 2017-07-10 14:18 | PCM.HPANE ---
Patient Data Surgeon Admitting Provider:Jim Granados MD Attending Provider:Noble Graham MD Primary Care Physician:Nopksenia Other Provider: Reason for Visit Crohn's Disease, Abdominal Pain,Wt Loss,Anemia Ht/WT & BMI Height (Feet): 5 Height (Inches): 11.00 Weight (Kilograms): 47.900 Body Mass Index 14.78 Allergies Coded Allergies: oxycodone (Verified Allergy, Intermediate, VOMIT AND MIGRAINES, 07/08/17) Past Anesthesia History Anesthesia History: Denies:: Anesthesia Reactions Diabetes History Hx Diabetes?: No MRSA MRSA: No Medications Reported Medications Acetaminophen (Extra Strength Non-Aspirin)500 Mg Tablet2 Each PO Q4H PRN For Pain 07/08/17 History History of ENT Problems?: No HEENT History: Denies:: Abnormal Airway Denture Type: None Teeth Condition: Tooth Decay Hx of Heart Problems?: No Cardiovascular History: Denies:: Abdominal Aortic Aneurism Hx of Respiratory Problem?: No Respiratory History: Denies:: Asthma Hx Neurologic Problems?: Yes Neurological History: Positive for:: Headaches Hx of GI Problems?: Yes Other GI Pertinent History: Cron's disease diagnosed at age 18 Hx of Problems?: No Male Hx: Denies:: Prostate Problems Scrotal Mass Testicular Surgery Hx Musculoskeletal Problems?: Yes Musculoskeletal History: Positive for:: 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 Denies:: Blood Transfusions Hx Diabetes: No Hx Alcohol Use: Yes (once a month)Hx Substance Use: Yes (marijuana) Smoking Status: Current Every Day Smoker Approx How Many Cigarettes/day: 1/4 ppd Stop/Bang Treated for Sleep Apnea?: No Do You Have a CPAP Machine?: Yes S-Snoring: Do You Snore Loudly: No T-Tired: feel tired, fatigued: No O-Obsered: Observed not breath: No P-Blood Pressure: treated: No B- Body Mass Index > 35 kg/m2: No A- Age over 50: No N- Neck Large Circumference: No G- Gender Male: Yes LAKESHA Total Score: 1 LAKESHA Risk Assessment: Low Risk, <3 Yes Risk Assessment Category Category 1A: Patient has history of documented sleep apnea, and HAS NOT received any narcotic, sedative or anesthesia administration during this stay. Category 1B: Patient has history of documented sleep apnea, and HAS received any narcotic , sedative or anesthesia administration during this stay Category 2: Patient has SUSPECTED Obstructive Sleep Apnea, and HAS received any narcotic , sedative or anesthesia administration during this stay. Category 3: Patient has SUSPECTED Obstructive Sleep Apnea and HAS NOT received narcotic, sedative or anesthesia administration during this stay. Category 4: Outpatient in Procedural Areas with known sleep apnea or who screen positive for High Risk via the STOP/BANG questionnaire. Exam Exam Vital Signs Vital Signs Date Time Temp Pulse Resp B/P Pulse Ox O2 Delivery O2 Flow Rate FiO2 07/10/17 12:55 36.7 59 16 103/61 07/10/17 12:27 36.6 72 16 101/61 General Appearance: Alert, Oriented X3, Cooperative, No Acute Distress HEENT/AIRWAY: MP 2 Lungs: Clear to Auscultation, Normal Air Movement Heart: Exam Unremarkable, Regular Rate/Rhythm, No Murmurs/Rubs/Gallops Meds/Labs/Diagnostics Admission Meds Current Medications Polyethylene Glycol/ Electrolytes (Colyte) 4,000 ml ONCE ONCE PO Last administered on 07/09/17 16:20; Start 07/09/17 at 16:00; Stop 07/09/17 at 16:49 ; Status DC Mesalamine 1000 mg 1,000 mg QID PO Last administered on 07/09/17 18:27; Start 07/09/17 at 16:30 Sodium Chloride (Normal Saline) 250 ml @ STK-MED ONCE .ROUTE Last administered on 07/10/17 12:10; Start 07/10/17 at 10:30; Stop 07/10/17 at 10:31 ; Status DC Labs Test 07/08/17 16:59 07/08/17 17:00 07/08/17 21:00 07/10/17 05:25 Erythrocyte Sedimentation Rate 35mm/hr (0-15) Reticulocyte Count,Calculated 1.0% (0.6-2.6) Magnesium Level 1.8mg/dL (1.6-2.6) Iron Level 16ug/dL (35-150) Total Iron Binding Capacity 278ug/dL (250-450) Percent Iron Saturation 6%sat (15-50) Unsaturated Iron Binding 261.5ug/dL Ferritin 22ng/mL (30-400) Total Bilirubin 0.2mg/dL (0.0-1.2) Aspartate Amino Transf (AST/SGOT) 12U/L (0-50) Alanine Aminotransferase (ALT/SGPT) 7U/L (0-44) Alkaline Phosphatase 66U/L (25-150) Total Protein 6.9g/dL (6.4-8.4) Albumin 3.3g/dL (3.4-5.0) Lipase 16U/L (13-60) Hold [place] Top Tube Received (Received) Hold Urine Received (Received) White Blood Count 4.2th/mm3 (3.8-10.1) Red Blood Count 3.84mil/mm3 (4.40-5.80) Hemoglobin 7.4g/dL (13.8-17.2) Hematocrit 24.9% (41.0-50.0) Mean Corpuscular Volume 64.8fL (81-100) Mean Corpuscular Hemoglobin 19.3pg (27.0-35.0) Mean Corpuscular Hemoglobin Concent 29.7% (32.0-37.0) Red Cell Distribution Width 17.8% (12.3-15.4) Platelet Count 327bil/L (150-400) Neutrophils (%) (Auto) 75.1% (40-74) Lymphocytes (%) (Auto) 9.6% (14-46) Monocytes (%) (Auto) 13.2% (4-12) Eosinophils (%) (Auto) 1.4% (0-5) Basophils (%) (Auto) 0.5% (0-3) Sodium Level 138mEq/L (134-144) Potassium Level 3.7mEq/L (3.5-5.2) Chloride Level 106mEq/L (97-108) Carbon Dioxide Level 21mmol/L (18-29) Blood Urea Nitrogen 3mg/dL (6-20) Creatinine 0.55mg/dL (0.76-1.27) Estimat Glomerular Filtration Rate 195mL/min (>59) Glucose Level 107mg/dL (60-99) Calcium Level 8.0mg/dL (8.5-10.1) Plan Impression Patient chart reviewed, patient interviewed and anesthestic plan with risks, benefits, and alternatives discussed, and informed consent obtained. NPO per Anesth. Guidelines: Yes ASA Physical Status: ASA2 Mod Systemic Disease Anesthetic Plan: MAC Bene/Risks/Altern/Consents: Yes HP Complete Prior to Induction: Yes Gaurav Clement MD Jul 10, 2017 14:18
--- NOTE | 2017-07-10 14:27 | NUR ---
Pt off Unit to ENDO
[2017-07-10] MEDS ORDERED: Lactated Ringer's 1,000 ML IV ONE (15:07)
[2017-07-10] MEDS ORDERED: fentaNYL-PF 50 mCg/mL 2 mL Inj ONE (15:12)
[2017-07-10] MEDS ORDERED: Ketamine 10 mg/mL 20 mL Inj ONE (15:12)
[2017-07-10] MEDS ORDERED: Propofol 10,000 mCg/mL 20 mL Inj ONE (15:12)
--- NOTE | 2017-07-10 15:54 | ENDO ---
[address] [address] ENDOSCOPY PROCEDURE PATIENT: ASHLEY MORRIS : 1990 MR#: [id number] ADMIT: 07/08/2017 JOB ID: [id number] DATE OF SERVICE: 07/10/2017 PROCEDURE: Esophagogastroduodenoscopy with biopsy and colonoscopy with biopsy. PREOPERATIVE DIAGNOSIS(ES): History of Crohn disease, diarrhea, anemia, weight loss. POSTOPERATIVE DIAGNOSIS(ES): 1. Normal upper endoscopy, status post biopsy. 2. Rectosigmoid stricture that was seen which was biopsied and able to transverse through a pediatric colonoscope. 3. Severe erythema and pseudopolyps seen in the sigmoid colon and possible fistula that was seen with very friable mucosa which was biopsied. ANESTHESIA: Monitored anesthesia care. COMPLICATIONS: None. BLOOD LOSS: Minimal. DESCRIPTION OF PROCEDURE: After risks and benefits were explained to the patient, informed consent was obtained. After anesthesia administered, the upper endoscope was inserted in mouth, intubating to the esophagus, stomach, second portion of duodenum. Mucosa carefully examined. After procedure was done, the scope withdrawn and procedure terminated. Colonoscope was inserted from rectum to the sigmoid colon to 60 cm and mucosa carefully examined. Prep of the patient was fair. After the procedure done, scope withdrawn, procedure terminated. FINDINGS: Upon inspection of esophagus, the esophagus was normal without masses, ulcers, or lesions. Z-line located 40 cm from incisors. Upon entering the stomach, stomach was also normal without masses, ulcers, or lesions. Retroflexion of the duodenal bulb, first and second portion normal. Biopsies taken of duodenum, antrum and body of stomach. On inspection of anus, no masses, hemorrhoids, ulcers, fissures that were seen during the entire examination. There was a rectosigmoid stricture that was seen with marked erythema which was biopsied. Pediatric colonoscope was able to transverse through the stricture site and advance proximal to the stricture. Again there was continuous marked erythema with friable mucosa and pseudopolyps that were seen and very, very friable mucosa in continuous fashion up to 60 cm with possible false lumen in which bile was actually seen coming through there. Biopsies were taken in this region and the procedure was then aborted. IMPRESSION: 1. Normal upper endoscopy, status post biopsy. 2. Rectosigmoid stricture which was able to transverse through with pediatric colonoscope, status post biopsy. 3. Severe marked erythema friable mucosa with pseudopolyps seen in the sigmoid colon and possibly a fistula that was seen there at 60 cm from the anus, status post biopsy. RECOMMENDATION: 1. Await pathology results. 2. General Surgery consultation.
--- NOTE | 2017-07-10 16:11 | PCM.HPANE ---
Patient Data Date of Service: Jul 10, 2017 Surgeon Admitting Provider:Jim Granados MD Attending Provider:Noble Graham MD Primary Care Physician:Juliane Other Provider: Reason for Visit Crohn's Disease, Abdominal Pain,Wt Loss,Anemia Ht/WT & BMI Height (Feet): 5 Height (Inches): 11.00 Weight (Kilograms): 47.900 Body Mass Index 14.00 Allergies Coded Allergies: oxycodone (Verified Allergy, Intermediate, VOMIT AND MIGRAINES, 07/08/17) Past Anesthesia History Anesthesia History: Denies:: Abnormal Airway, Anesthesia Reactions, Difficult Intubation, Fam Anesthesia Reaction, Fam Malignant Hypertherm, Malignant Hyperthermia Diabetes History Hx Diabetes?: No MRSA MRSA: No Medications Reported Medications Acetaminophen (Extra Strength Non-Aspirin)500 Mg Tablet2 Each PO Q4H PRN For Pain 07/08/17 History History of ENT Problems?: No HEENT History: Denies:: Abnormal Airway Difficult Intubation Dysphagia Hearing Problem Denture Type: None Teeth Condition: Tooth Decay Other HEENT Pertinent History: DECAYED TEETH Hx of Heart Problems?: No Cardiovascular History: Denies:: Abdominal Aortic Aneurism Hx of Respiratory Problem?: No Respiratory History: Denies:: Asthma Hx Neurologic Problems?: Yes Neurological History: Positive for:: Headaches Denies:: CVA Hx of GI Problems?: Yes Other GI Pertinent History: Cron's disease diagnosed at age 18 Hx of Problems?: No Male Hx: Denies:: Prostate Problems Scrotal Mass Testicular Surgery Hx Musculoskeletal Problems?: Yes Musculoskeletal History: Positive for:: 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 Denies:: Blood Transfusions Hx Diabetes: No Hx Alcohol Use: Yes (once a month)Hx Substance Use: Yes (marijuana) Smoking Status: Current Every Day Smoker Approx How Many Cigarettes/day: 1/4 ppd Stop/Bang Treated for Sleep Apnea?: No Do You Have a CPAP Machine?: Yes S-Snoring: Do You Snore Loudly: No T-Tired: feel tired, fatigued: No O-Obsered: Observed not breath: No P-Blood Pressure: treated: No B- Body Mass Index > 35 kg/m2: No A- Age over 50: No N- Neck Large Circumference: No G- Gender Male: Yes LAKESHA Total Score: 1 LAKESHA Risk Assessment: Low Risk, <3 Yes Risk Assessment Category Category 1A: Patient has history of documented sleep apnea, and HAS NOT received any narcotic, sedative or anesthesia administration during this stay. Category 1B: Patient has history of documented sleep apnea, and HAS received any narcotic , sedative or anesthesia administration during this stay Category 2: Patient has SUSPECTED Obstructive Sleep Apnea, and HAS received any narcotic , sedative or anesthesia administration during this stay. Category 3: Patient has SUSPECTED Obstructive Sleep Apnea and HAS NOT received narcotic, sedative or anesthesia administration during this stay. Category 4: Outpatient in Procedural Areas with known sleep apnea or who screen positive for High Risk via the STOP/BANG questionnaire. Low Risk, <3 Yes Exam Exam Vital Signs Vital Signs Date Time Temp Pulse Resp B/P Pulse Ox O2 Delivery O2 Flow Rate FiO2 07/10/17 16:01 65 14 95/58 98 Room Air 07/10/17 15:52 71 14 98/58 98 Nasal Cannula 4 07/10/17 15:50 36.4 77 14 98/58 07/10/17 15:42 70 12 96/58 100 Nasal Cannula 4 07/10/17 14:30 36.6 60 16 105/70 100 Room Air 07/10/17 12:55 36.7 59 16 103/61 07/10/17 12:27 36.6 72 16 101/61 General Appearance: Alert, Oriented X3, Cooperative, No Acute Distress HEENT/AIRWAY: MP 2 Lungs: Clear to Auscultation, Normal Air Movement Heart: Exam Unremarkable, Regular Rate/Rhythm, No Murmurs/Rubs/Gallops Meds/Labs/Diagnostics Admission Meds Current Medications Mesalamine 1000 mg 1,000 mg QID PO Last administered on 07/09/17 18:27; Start 07/09/17 at 16:30 Sodium Chloride 250 ml @ ud STK-MED ONCE .ROUTE Last administered on 07/10/17 12:10; Start 07/10/17 at 10:30; Stop 07/10/17 at 10:31; Status DC Lactated Ringer's (Lr) 1,000 ml @ STK-MED ONCE IV Last administered on 07/10t 15:07; Start 07/10/17 at 15:07; Stop 07/10/17 at 15:08; Status DC Labs Test 07/08/17 16:59 07/08/17 17:00 07/08/17 21:00 07/10/17 05:25 Erythrocyte Sedimentation Rate 35mm/hr (0-15) Reticulocyte Count,Calculated 1.0% (0.6-2.6) Magnesium Level 1.8mg/dL (1.6-2.6) Iron Level 16ug/dL (35-150) Total Iron Binding Capacity 278ug/dL (250-450) Percent Iron Saturation 6%sat (15-50) Unsaturated Iron Binding 261.5ug/dL Ferritin 22ng/mL (30-400) Total Bilirubin 0.2mg/dL (0.0-1.2) Aspartate Amino Transf (AST/SGOT) 12U/L (0-50) Alanine Aminotransferase (ALT/SGPT) 7U/L (0-44) Alkaline Phosphatase 66U/L (25-150) Total Protein 6.9g/dL (6.4-8.4) Albumin 3.3g/dL (3.4-5.0) Lipase 16U/L (13-60) Hold [place] Top Tube Received (Received) Hold Urine Received (Received) White Blood Count 4.2th/mm3 (3.8-10.1) Red Blood Count 3.84mil/mm3 (4.40-5.80) Hemoglobin 7.4g/dL (13.8-17.2) Hematocrit 24.9% (41.0-50.0) Mean Corpuscular Volume 64.8fL (81-100) Mean Corpuscular Hemoglobin 19.3pg (27.0-35.0) Mean Corpuscular Hemoglobin Concent 29.7% (32.0-37.0) Red Cell Distribution Width 17.8% (12.3-15.4) Platelet Count 327bil/L (150-400) Neutrophils (%) (Auto) 75.1% (40-74) Lymphocytes (%) (Auto) 9.6% (14-46) Monocytes (%) (Auto) 13.2% (4-12) Eosinophils (%) (Auto) 1.4% (0-5) Basophils (%) (Auto) 0.5% (0-3) Sodium Level 138mEq/L (134-144) Potassium Level 3.7mEq/L (3.5-5.2) Chloride Level 106mEq/L (97-108) Carbon Dioxide Level 21mmol/L (18-29) Blood Urea Nitrogen 3mg/dL (6-20) Creatinine 0.55mg/dL (0.76-1.27) Estimat Glomerular Filtration Rate 195mL/min (>59) Glucose Level 107mg/dL (60-99) Calcium Level 8.0mg/dL (8.5-10.1) Plan Impression Patient chart reviewed, patient interviewed and anesthestic plan with risks, benefits, and alternatives discussed, and informed consent obtained. NPO per Anesth. Guidelines: Yes ASA Physical Status: ASA1 Plus Emergency Anesthetic Plan: MAC Bene/Risks/Altern/Consents: Yes HP Complete Prior to Induction: Yes Keny Cotter DO Jul 10, 2017 16:11
--- NOTE | 2017-07-10 16:12 | PCM.ANEP1 ---
Post Anesthesia PACU Phase 1 Assessment Date of Service: Jul 10, 2017 Vital Signs Vital Signs Date Time Temp Pulse Resp B/P Pulse Ox O2 Delivery O2 Flow Rate FiO2 07/10/17 16:01 65 14 95/58 98 Room Air 07/10/17 15:52 71 14 98/58 98 Nasal Cannula 4 07/10/17 15:50 36.4 77 14 98/58 07/10/17 15:42 70 12 96/58 100 Nasal Cannula 4 07/10/17 14:30 36.6 60 16 105/70 100 Room Air 07/10/17 12:55 36.7 59 16 103/61 07/10/17 12:27 36.6 72 16 101/61 Anesthetic Administered: MAC Level of Alertness: Awake, talking LARKIN's with Equal Strength: Yes Pain: No Pain Scale Score: 7 Nausea or Vomiting: No CV Function & Hydration Stable: Yes Airway Device: Lungs: Clear to Auscultation, Normal Air Movement PACU Phase 2 Assessment Complications: No Patient Instructions Provided: N/A Keny Cotter DO Jul 10, 2017 16:12
[2017-07-10] MEDS ORDERED: SODIUM CHLORIDE 0.9% IV ONE (17:40)
[2017-07-10] MEDS ORDERED: INFLIXIMAB IV ONE (17:40)
--- NOTE | 2017-07-10 18:30 | NUR ---
Post Op Pt back from Endo. Endo RN completed blood transfusion. Pt A&Ox3. LARKIN. Pain 8. Morphine given. Lab called to draw quantiferon test. Holding remicade until lab draws quantiferon. Will report to awake overnight monitor RN.
--- NOTE | 2017-07-10 20:42 | CONS ---
[address] [address] CONSULTATION REPORT PATIENT: ASHLEY MORRIS : 1990 MR#: [id number] ADMIT: 07/08/2017 JOB ID: [id number] DATE OF SERVICE: 07/10/2017 CHIEF COMPLAINT: A 26-year-old male with Crohn disease. This consultation is requested by Luís Loredo MD, of Gastroenterology. HISTORY OF PRESENT ILLNESS: This is a 26-year-old male who was diagnosed with Crohn disease approximately eight years ago. Previous medications include Pentasa, which he stopped taking because the pills were too large. He has had difficulty with access to health care, and in the past has had no health insurance and has not been to the doctors. He has had significant abdominal pain, weight loss, and bloody diarrhea over the past six months. His current BMI is 14.7. He was admitted to the hospital two days ago when he presented with abdominal pain. Upper and lower endoscopies were performed today and he had diffuse, very severe inflammation of the entire colon with a stricture at the rectosigmoid which was passable by the scope. There was a question of bilious- appearing fluid at 60 cm, although a clear fistula was not seen at that site. I was consulted by Dr. Loredo for assessment and determining whether surgery would be indicated for this patient. PAST MEDICAL HISTORY: Crohn disease. PAST SURGICAL HISTORY: None. MEDICATIONS: Current medications as an inpatient include levofloxacin, metronidazole, mesalamine, methylprednisolone, and additional p.r.n. medications for nausea and constipation. ALLERGIES: OXYCODONE. FAMILY HISTORY: Both parents had inflammatory bowel disease according to his intake notes. SOCIAL HISTORY: He is a current every-day smoker, lives with his family, drinks alcohol and uses marijuana. REVIEW OF SYSTEMS: An 11-point review of systems is positive for abdominal pain, diarrhea, weight loss. It is otherwise negative. PHYSICAL EXAMINATION: Temperature 36.8, heart rate 54, blood pressure 101/65, respiratory rate of 18, saturation 100% on room air. General: Somewhat sleepy as he had just completed colonoscopy. No acute distress. Head: Normocephalic. He appears cachectic. Neck: Supple. Cardiac: Regular rate and rhythm, no murmurs, rubs, or gallops. Respiratory: Clear to auscultation bilaterally at the apices. Abdomen: His abdomen is soft but is diffusely tender to mild palpation. There is mild distention, although he just finished colonoscopy. Extremities: No edema; cachectic. Psychiatric: Normal cognition and judgment. LABS: White blood cell count is 4.2, hematocrit 24.9, platelets 327. Basic metabolic panel is within normal limits. IMAGING: Abdominal CT scan images are personally reviewed and reveals circumferential wall thickening of the terminal ileum, colon, and rectum. His appendix is similarly thickened. A small amount of pericholecystic fluid was also seen on CT scan. ASSESSMENT: A 26-year-old male with severe inflammation of the colon and terminal ileum secondary to Crohn disease who has not previously been on adequate medical therapy. RECOMMENDATION: I recommend continuation of medical therapy for this patient as previously he has not been fully compliant with medications and recommendations. Currently, he is a smoker and is very malnourished, and therefore is a poor surgical candidate. The general surgical team will continue to follow him while he is in the hospital.
[2017-07-11] MEDS: MethylprednisoLONE Sodium Succinate 62.5 mg/mL 2 mL Inj IVPUSH SCH ×3 (00:37→16:29)
[2017-07-11] MEDS: metroNIDAZOLE Inj 500 MG in IV Premix 1 EACH IV SCH ×3 (00:38→16:29)
[2017-07-11 05:26] LABS: BASOPHILS % (AUTO) 0.3 % (0-3); EOSINOPHILS % (AUTO) 0.3 % (0-5); MONOCYTES % (AUTO) 2.5 % (4-12); Mean Corpuscular Volume 65.8 fL (81-100); NEUTROPHILS % (AUTO) 90.4 % (40-74); Platelet Count 322 bil/L (150-400)
[2017-07-11 05:30] VITALS: BP 90/50; PULSE 47; RESP 16; O2SAT 100
[2017-07-11] MEDS: Dextrose 5% 0.9% NaCl 1,000 ML IV SCH ×3 (08:31→21:30)
[2017-07-11] MEDS: Mesalamine 500 mg CR Capsule PO SCH ×4 (08:32→20:54)
--- NOTE | 2017-07-11 08:55 | PCM.PNMED ---
Subjective Date of Service Jul 11, 2017 Subjective Patient seen and examined. Doing much better today. Vitals noted. Exam Vital Signs Vital Sign - Last Date Time Temp Pulse Resp B/P Pulse Ox O2 Delivery O2 Flow Rate FiO2 07/11/17 05:30 36.6 47 16 90/50 100 Room Air 07/10/17 15:52 4 Intake and Output 07/10/17 07/10/17 07/11/17 Cumulative From/Thru 15:00 23:00 07:00 07/08/17 16:11 - 07/11/17 06:55 Intake Total 700 ml 2035 ml 9218 ml Output Total 200 ml 700 ml 1300 ml Balance 500 ml 1335 ml 7918 ml Intake Oral 0 ml 540 ml 1830 ml IV Total 400 ml 1495 ml 7088 ml Packed Cells 300 ml 300 ml Output Urine Total 200 ml 500 ml 1100 ml Emesis 200 ml 200 ml # Voids 14 # Bowel Movements 0 0 3 Exam General: Alert, Oriented X3, Cooperative, Cachectic Chest & Lungs: Clear to auscultation & percussion, No adventitious breath sounds, no crackles, no wheeze Cardiovascular: Normal S1, Normal S2, No Murmurs/Rubs/Gallops, Regular Rate/ Rhythm, Pulses: Radial (present and equal), Dorsalis Pedi (present and equal) Abdomen: Soft, mild tenderness in the right lower quad, no rebound or guarding, Non-distended, Normoactive bowel tones. Lymphatic: Lymph nodes Cervical and Axillary not palpable. Lab and Diagnostics Result Diagram: 07/11/17 0515 07/11/17 0515 X-Rays, CTs and MRIs 07/08/17 - CT ABDOMEN AND PELVIS WITH CONTRAST IMPRESSION: 1. Circumferential wall thickening with adjacent inflammatory stranding involving the terminal ileum, colon and rectum. Finding consistent with coloenteritis which is likely related to inflammatory bowel disease or infectious etiologies. 2. Slightly enlarged appendix which could be related to adjacent terminal ileitis, however early manifestation of appendicitis cannot be excluded by imaging. 3. Small amount of pericholecystic fluid. There is clinical concern for cholecystitis, then abdominal ultrasound should be performed for definitive characterization. 4. Nonspecific periportal edema. Approved by: Nadine Dalton MD, PhD on 07/08/2017 at 19:24 Additional Diagnostics Colonoscopy IMPRESSION: 1. Normal upper endoscopy, status post biopsy. 2. Rectosigmoid stricture which was able to transverse through with pediatric colonoscope, status post biopsy. 3. Severe marked erythema friable mucosa with pseudopolyps seen in the sigmoid colon and possibly a fistula that was seen there at 60 cm from the anus, status post biopsy. Assessment & Plan David Maravilla is a 26 yo male with a history of Crohn's disease who presents to the Emergency department c/o worsening Crohn's symptoms 1. Acute on Chronic abdominal pain secondary to Crohn's colitis. Present on admission - Colonoscopy done, results as above - continue : empiric antibiotics with Levaquin and Flagyl IV, to be on remicade once quantiferon is negative, continue steroids - pain control with morphine - surgery was consulted, recs: medical management - Gastroenterology on boad, appreciate recs 2 Hyponatremia, Mild. Present on admission, resolved Likely represents hypovolemia based on patient's clinical picture - continue IV fluids with Normal saline 3 Malnutrition. Present on admission Albumin 3.3 and BMI 15.4. Patient has been having poor appetite - Nutritional consult requested - D5NS for now, switch to iv NS once patient tolerating orals 4 Chronic Microcytic Anemia Likely Iron deficiency anemia secondary to chronic slow GI bleeding - Iron studies ordered - consider Iron supplementations 5 Nicotine dependence Cessation discussed and encouraged. Patient states he is trying to quit - Nicotine patch upon request - Acetaminophen as needed for mild pain/fever/headache - Bowel regimen as needed - Antiemetic as needed Patient admitted under inpatient status with expected length of stay > 2 midnights for severity of present symptoms, complexities of treatment plan and risk for adverse event . . VTE Mechanical Devices: Intermittant Pneumatic CD Resuscitation Status: CPR: Attempt Resuscitation Time spent 35 mins Noble Graham MD Jul 11, 2017 08:55
[2017-07-11] MEDS: Ondansetron 2 mg/mL 2 mL Inj IVPUSH PRN ×3 (09:10→19:34)
[2017-07-11] MEDS: levoFLOXacin Inj 750 MG in IV Premix 1 EACH IV SCH (09:30)
--- NOTE | 2017-07-11 10:12 | PCM.PNSURG ---
Subjective Date of Service: Jul 11, 2017 Visit Information: Crohn's Disease involving small bowel and entire colon Date of Admission: Jul 08, 2017 at 20:54 Hospital Day # 4 Subjective: c/o Abdominal pain Objective Vital Sign- Last 8 Hours Date Time Temp Pulse Resp B/P Pulse Ox O2 Delivery O2 Flow Rate FiO2 07/11/17 05:30 36.6 47 16 90/50 100 Room Air Intake and Output- Last 8 Hour 07/11/17 Cumulative From/Thru 07:00 07/08/17 16:11 - 07/11/17 06:55 Intake Total 2035 ml 9218 ml Output Total 700 ml 1300 ml Balance 1335 ml 7918 ml Intake Oral 540 ml 1830 ml IV Total 1495 ml 7088 ml Packed Cells 300 ml Output Urine Total 500 ml 1100 ml Emesis 200 ml 200 ml # Voids 14 # Bowel Movements 0 3 Abdomen: Soft Result Diagram: 07/11/17 0515 07/11/17 0515 Assessment & Plan Impression Stable Problems: Plan Nutrition consult - TPN if indicated Maximize medical Rx No indication for acute surgical intervention Please call with questions Resuscitation Status: CPR: Attempt Resuscitation Dilip Wolf MD Jul 11, 2017 10:12
[2017-07-11 12:57] VITALS: BP 104/58; PULSE 61; RESP 16; O2SAT 100
--- NOTE | 2017-07-11 14:10 | NUR ---
NUTRITION ASSESSMENT: ASSESS: 26 YO male admitted with complaint of worsening abdominal pain, cramping and bloody diarrhea for the last 3-6 months. Associated symptoms include chills, subjective fevers, nausea, dizziness, decreased appetite with weight loss of 12.2% x 2 months, and generalized weakness. He states that he has been off of all medication for about a year due to lack of health insurance. Over the course of the last year his symptoms have gradually increased. He was NPO / clear liquids x 2 days related to EGD. Diet advanced to soft 07/10, with PO intake 75% - 100% trays. Patient with severe Crohn's disease that involves the small bowel and the entire colon. Case Management working with pt. to reinstate his [employer] insurance. The patient's Crohn's disease may potentially require supplementation with TPN, as his GI tract is unable to metabolize many nutrients in sufficient quantity to meet nutrient needs to any significant extent. PMHx: Crohns disease, iron deficiency anemia. LABS: Reviewed. BUN 2, Cr 0.53, Glu 129, Ca 8.2. MEDS:Reviewed. Solu-medrol, morphine. GI: BM x 3 (07/09). SKIN: Muscle and fat wasting in upper and lower extremities. CURRENT WT: 47.9 kg, BMI 14.0 kg/m2. Admit weight: 47.9 kg, BMI 14.7. IBW 78.2 kg. UBW: 54.5 DIET: Soft, with Vanilla Ensure all trays. PO intake 75% - 100% trays. EST. NEEDS: 9748-8526 kcals (35-40 kcals/kg BW), 95-115 g protein (1.2-1.5 g/kg IBW) NUTRITION DIAGNOSIS: 1) Severe malnutrition in the context of chronic illness related to Crohns disease as evidenced by BMI of 14.7, reported poor po intake times 2 months, severe muscle and fat wasting and severe weight loss of 12.2% x 2 months - PERSISTS. 2) Altered GI function related to Crohn's disease that involves the small bowel and the entire colon, as evidenced by weight loss and diarrhea. NUTRITION INTERVENTION: 1) Will continue Vanilla Ensure all trays. 2) Strongly recommend providers consider TPN to supplement oral nutrition and lack of proper metabolism of nutrients. Recommendation to initiate TPN at 50% macronutrient goal rate due to poor nutritional status and gradually increase to goal macronutrient rate of dextrose 300 g, amino acid 115 g, lipid 40 g (54% CHO / 24% PRO / 21% LIPID), which would provide 1880 kcal, 115 g protein, sufficient to meet 100% nutrient needs. 3) Recommend adjust TPN appropriately to balance PO intake. MONITOR / EVAL: PO intake, diet advancement/tolerance, labs, weights, nutritional status. Follow per high nutritional risk guidelines.
--- NOTE | 2017-07-11 15:05 | PCM.PNMED ---
Subjective Date of Service Jul 11, 2017 Subjective tolerating PO, ate mendieta and eggs for breakfast and at e part of a cheese burger he states no new complaints abdominal pain controlled with narcotis Exam Vital Signs Vital Sign - Last Date Time Temp Pulse Resp B/P Pulse Ox O2 Delivery O2 Flow Rate FiO2 07/11/17 12:57 36.7 61 16 104/58 100 Room Air 07/10/17 15:52 4 Intake and Output 07/10/17 07/10/17 07/11/17 Cumulative From/Thru 15:00 23:00 07:00 07/08/17 16:11 - 07/11/17 06:55 Intake Total 700 ml 2035 ml 9218 ml Output Total 200 ml 700 ml 1300 ml Balance 500 ml 1335 ml 7918 ml Intake Oral 0 ml 540 ml 1830 ml IV Total 400 ml 1495 ml 7088 ml Packed Cells 300 ml 300 ml Output Urine Total 200 ml 500 ml 1100 ml Emesis 200 ml 200 ml # Voids 14 # Bowel Movements 0 0 3 Exam Gen- no apparent distress, oriented to person, place and time HEENT- mild pallor Resp-clear bilaterally CVS-RRR abdomen- soft, non distended, diffuse mild tenderness EXT- no edema Lab and Diagnostics Result Diagram: 07/11/1751407/11/1715 X-Rays, CTs and MRIs 07/08/17 - CT ABDOMEN AND PELVIS WITH CONTRAST IMPRESSION: 1. Circumferential wall thickening with adjacent inflammatory stranding involving the terminal ileum, colon and rectum. Finding consistent with coloenteritis which is likely related to inflammatory bowel disease or infectious etiologies. 2. Slightly enlarged appendix which could be related to adjacent terminal ileitis, however early manifestation of appendicitis cannot be excluded by imaging. 3. Small amount of pericholecystic fluid. There is clinical concern for cholecystitis, then abdominal ultrasound should be performed for definitive characterization. 4. Nonspecific periportal edema. Approved by: Nadine Dalton MD, PhD on 07/08/2017 at 19:24 Additional Diagnostics Colonoscopy IMPRESSION: 1. Normal upper endoscopy, status post biopsy. 2. Rectosigmoid stricture which was able to transverse through with pediatric colonoscope, status post biopsy. 3. Severe marked erythema friable mucosa with pseudopolyps seen in the sigmoid colon and possibly a fistula that was seen there at 60 cm from the anus, status post biopsy. Assessment & Plan Acute Crohn's flair - continue IV steroids, would recommend decreasing solumedrol dose to 20mg IV q 8 -continue pentasa -await TB serologies, if negative then start Remicaide Possible Entero-[place] fistula -discuss with radiology regarding appropriate radiologic study to help identify this Iron Defiencey Anemia -cont iron supplementation Moderate malnutrition -calorie count -may need to consider TPN pending calorie count results VTE Mechanical Devices: Intermittant Pneumatic CD Resuscitation Status: CPR: Attempt Resuscitation Carrillo Hernandez MD Jul 11, 2017 15:05
--- NOTE | 2017-07-11 17:58 | NUR ---
ACTIVITY Patient up and walking halls with cane x2, no complaints of dizziness. Pain and nausea well managed with medication. Tolerating meals, soft diet. Will continue to monitor.
--- NOTE | 2017-07-11 18:07 | DRSVH ---
PROCEDURE: X-RAY CHEST, TWO VIEWS ([id number]) INDICATIONS: rule out TB prior to remicaide infusion TECHNIQUE: 2 views of the chest were acquired. COMPARISON: None. FINDINGS: Surgical changes and devices: None. Lungs and pleura: No pleural effusions or pneumothorax. Lungs are clear. Mediastinum: Mediastinal contours are normal. Heart size is normal. Bones and chest wall: No suspicious bony abnormalities. Soft tissues appear unremarkable. IMPRESSION: No acute cardiopulmonary disease. No active TB on chest x-ray. Dictated by: Jennifer Chavez M.D. on 07/11/2017 at 18:04 Approved by: Jennifer Chavez M.D. on 07/11/2017 at 18:05
[2017-07-11 20:45] VITALS: BP 110/67; PULSE 55; RESP 16; O2SAT 100
[2017-07-12] MEDS: MethylprednisoLONE Sodium Succinate 62.5 mg/mL 2 mL Inj IVPUSH SCH (01:21)
[2017-07-12] MEDS: metroNIDAZOLE Inj 500 MG in IV Premix 1 EACH IV SCH ×3 (01:28→17:34)
[2017-07-12] MEDS: Mesalamine 500 mg CR Capsule PO SCH ×4 (05:48→21:04)
[2017-07-12 05:50] VITALS: BP 108/66; PULSE 57; RESP 16; O2SAT 100
--- NOTE | 2017-07-12 05:59 | NUR ---
Pain/ Nausea Pt. reports pain and nausea at times. IV Zofran and IV morphine effective for pain and nausea. Will continue to monitor.
[2017-07-12 06:29] LABS: BASOPHILS % (AUTO) 0 % (0-3); EOSINOPHILS % (AUTO) 0 % (0-5); MONOCYTES % (AUTO) 3.1 % (4-12); Mean Corpuscular Volume 66.9 fL (81-100); NEUTROPHILS % (AUTO) 92.6 % (40-74); Platelet Count 356 bil/L (150-400)
[2017-07-12] MEDS: Dextrose 5% 0.9% NaCl 1,000 ML IV SCH ×2 (07:30→17:30)
[2017-07-12] MEDS: Ondansetron 2 mg/mL 2 mL Inj IVPUSH PRN (07:43)
[2017-07-12] MEDS: MethylprednisoLONE Sodium Succinate 40 mg/mL Inj IVPUSH SCH ×2 (08:40→17:34)
[2017-07-12 09:17] VITALS: BP 109/66; PULSE 57; RESP 18; O2SAT 100
--- NOTE | 2017-07-12 09:58 | PCM.PNMED ---
Subjective Date of Service Jul 12, 2017 Subjective Patient seen and examined. Had some bloody bowel movements today. Says he feels hungry. Vitals stable. Exam Vital Signs Vital Sign - Last Date Time Temp Pulse Resp B/P Pulse Ox O2 Delivery O2 Flow Rate FiO2 07/12/17 09:17 36.4 57 18 109/66 100 Room Air 07/10/17 15:52 4 Intake and Output 07/11/17 07/11/17 07/12/17 Cumulative From/Thru 15:00 23:00 07:00 07/08/17 16:11 - 07/12/17 05:52 Intake Total 2277 ml 461 ml 46166 ml Output Total 675 ml 1975 ml Balance 1602 ml 461 ml 9981 ml Intake Oral 1117 ml 2947 ml IV Total 1160 ml 461 ml 8709 ml Packed Cells 300 ml Output Urine Total 675 ml 1775 ml Emesis 200 ml # Voids 14 # Bowel Movements 3 Exam General: Alert, Oriented X3, Cooperative, Cachectic Chest & Lungs: Clear to auscultation & percussion, No adventitious breath sounds, no crackles, no wheeze Cardiovascular: Normal S1, Normal S2, No Murmurs/Rubs/Gallops, Regular Rate/ Rhythm, Pulses: Radial (present and equal), Dorsalis Pedi (present and equal) Abdomen: Soft, mild tenderness in the right lower quad, no rebound or guarding, Non-distended, Normoactive bowel tones. Lymphatic: Lymph nodes Cervical and Axillary not palpable. Lab and Diagnostics Result Diagram: 07/12/17 0535 07/12/17 0535 X-Rays, CTs and MRIs 07/08/17 - CT ABDOMEN AND PELVIS WITH CONTRAST IMPRESSION: 1. Circumferential wall thickening with adjacent inflammatory stranding involving the terminal ileum, colon and rectum. Finding consistent with coloenteritis which is likely related to inflammatory bowel disease or infectious etiologies. 2. Slightly enlarged appendix which could be related to adjacent terminal ileitis, however early manifestation of appendicitis cannot be excluded by imaging. 3. Small amount of pericholecystic fluid. There is clinical concern for cholecystitis, then abdominal ultrasound should be performed for definitive characterization. 4. Nonspecific periportal edema. Approved by: Nadine Dalton MD, PhD on 07/08/2017 at 19:24 Additional Diagnostics Colonoscopy IMPRESSION: 1. Normal upper endoscopy, status post biopsy. 2. Rectosigmoid stricture which was able to transverse through with pediatric colonoscope, status post biopsy. 3. Severe marked erythema friable mucosa with pseudopolyps seen in the sigmoid colon and possibly a fistula that was seen there at 60 cm from the anus, status post biopsy. Assessment & Plan David Maravilla is a 26 yo male with a history of Crohn's disease who presents to the Emergency department c/o worsening Crohn's symptoms #. Acute on Chronic abdominal pain secondary to Crohn's colitis. Present on admission - Colonoscopy done, results as above - continue : empiric antibiotics with Levaquin and Flagyl IV, to be on remicade as tb ruled out, continue steroids - pain control with morphine - tapering steroids - surgery was consulted, recs: medical management - Gastroenterology on boad, appreciate recs # lekocytosis - likely 2/2 to steroids - continue abx for now, will do procalcitonin - trend # Hyponatremia, Mild. Present on admission, resolved Likely represents hypovolemia based on patient's clinical picture - continue IV fluids with Normal saline # Malnutrition. Present on admission Albumin 3.3 and BMI 15.4. Patient has been having poor appetite - Nutritional consult requested - D5NS for now, switch to iv NS once patient tolerating orals # Chronic Microcytic Anemia Likely Iron deficiency anemia secondary to chronic slow GI bleeding - Iron studies ordered - consider Iron supplementations # Nicotine dependence Cessation discussed and encouraged. Patient states he is trying to quit - Nicotine patch upon request - Acetaminophen as needed for mild pain/fever/headache - Bowel regimen as needed - Antiemetic as needed Patient admitted under inpatient status with expected length of stay > 2 midnights for severity of present symptoms, complexities of treatment plan and risk for adverse event Pain Evaluation: Adequate Pain Control VTE Mechanical Devices: Intermittant Pneumatic CD Resuscitation Status: CPR: Attempt Resuscitation Time spent 35 mins Noble Graham MD Jul 12, 2017 09:58
--- NOTE | 2017-07-12 10:40 | NUR ---
Social Work- Continued D/C Planning Data: EMR reviewed. Pt is on day 4 of hospitalization for crohns disease, abdominal pain, weight loss. RCA has seen patient, pt is enrolled in [facility], awaiting it to show in patient portal. would like pt to establish PCP follow up after this admission. Orders acknowledged. SW met with pt at bedside regarding PCP follow up and to check in. Pt is in good spirits. [facility] explained, pt is agreeable to referral to the residency clinic. This appointment is not able to be established today due to the weekend but AUTO MECHANIC will make this appointment on Thursday. Pt is observed to have a cane at bedside to assist with mobility, per pt automation engineering manager provided this. SW also spoke with pt regarding food accessibility as pt is underweight and has two children at home. Pt reports that he receives TAN[place] and [employer] [place] each month. Pt reports that food is short towards the end of the month when [employer] [place] have run out. Discussed [employer] [place] with pt, pt is already accessing [employer] [place] in [place]. Pt states that his automation engineering manager is very supportive and helps with food accessibility as well. Pt reports that he always makes sure that his children and have food, Discussed that it is important for pt to eat as well. Pt endorses a lack of appetite but is agreeable to attempting to eat more. Pt observed eating in bed during this conversation, agrees that his appetite has improved during this admission and he is gaining weight. Pt appreciative of check in, SW encouraged him to contact with any additional needs. SW will continue to follow. Assessment: Pt who is capable of self-care despite increased weakness Plan: Pt likely to d/c home with his family. AUTO MECHANIC to assist with scheduling pt for PCP follow up at res. clinic. SW will continue to follow for any additional needs. Anastasia Laguna MSW
[2017-07-12] MEDS: levoFLOXacin Inj 750 MG in IV Premix 1 EACH IV SCH (10:43)
--- NOTE | 2017-07-12 16:00 | PCM.PNMED ---
Subjective Date of Service Jul 12, 2017 Subjective tolerated regular breakfast and lunch 6 episodes of small volume diarrhea, three episodes were bloody abdominal pain controlled He has already received Remicaide infusion prior to TB test results His Chest xray was normal Exam Vital Signs Vital Sign - Last Date Time Temp Pulse Resp B/P Pulse Ox O2 Delivery O2 Flow Rate FiO2 07/12/17 09:17 36.4 57 18 109/66 100 Room Air 07/10/17 15:52 4 Intake and Output 07/11/17 07/11/17 07/12/17 Cumulative From/Thru 15:00 23:00 07:00 07/08/17 16:11 - 07/12/17 05:52 Intake Total 2277 ml 461 ml 37250 ml Output Total 675 ml 1975 ml Balance 1602 ml 461 ml 9981 ml Intake Oral 1117 ml 2947 ml IV Total 1160 ml 461 ml 8709 ml Packed Cells 300 ml Output Urine Total 675 ml 1775 ml Emesis 200 ml # Voids 14 # Bowel Movements 3 Exam Gen- no apparent distress, oriented to person, place and time HEENT- mild pallor Resp-clear bilaterally CVS-RRR abdomen- soft, non distended, diffuse mild tenderness EXT- no edema Lab and Diagnostics Result Diagram: 07/12/17 0535 07/12/17 0535 X-Rays, CTs and MRIs 07/08/17 - CT ABDOMEN AND PELVIS WITH CONTRAST IMPRESSION: 1. Circumferential wall thickening with adjacent inflammatory stranding involving the terminal ileum, colon and rectum. Finding consistent with coloenteritis which is likely related to inflammatory bowel disease or infectious etiologies. 2. Slightly enlarged appendix which could be related to adjacent terminal ileitis, however early manifestation of appendicitis cannot be excluded by imaging. 3. Small amount of pericholecystic fluid. There is clinical concern for cholecystitis, then abdominal ultrasound should be performed for definitive characterization. 4. Nonspecific periportal edema. Approved by: Nadine Dalton MD, PhD on 07/08/2017 at 19:24 Additional Diagnostics Colonoscopy IMPRESSION: 1. Normal upper endoscopy, status post biopsy. 2. Rectosigmoid stricture which was able to transverse through with pediatric colonoscope, status post biopsy. 3. Severe marked erythema friable mucosa with pseudopolyps seen in the sigmoid colon and possibly a fistula that was seen there at 60 cm from the anus, status post biopsy. Assessment & Plan Acute Crohn's flair - continue IV steroids, would recommend decreasing solumedrol dose to 20mg IV q 8 -continue pentasa -patient has received Remicaide prior to TB test results, continue to follow clinically seems to have tolerated infusion. Possible Entero-[place] fistula -discuss with radiology regarding appropriate radiologic study to help identify this Iron Defiencey Anemia -cont iron supplementation Moderate malnutrition -calorie count -may need to consider TPN pending calorie count results VTE Mechanical Devices: Intermittant Pneumatic CD Resuscitation Status: CPR: Attempt Resuscitation Attending Statement Acute Crohn's flair - continue IV steroids, would recommend decreasing solumedrol dose to 20mg IV q 8 -continue pentasa -await TB serologies, if negative then start Remicaide Possible Entero-[place] fistula -discuss with radiology regarding appropriate radiologic study to help identify this Iron Defiencey Anemia -cont iron supplementation Moderate malnutrition -calorie count -may need to consider TPN pending calorie count results Carrillo Hernandez MD Jul 12, 2017 16:00
--- NOTE | 2017-07-12 19:29 | NUR ---
Pain/Nausea Pt able to tolerate all meals, some difficulty with lunch d/t thick/dry chicken and then stated some heartburn at dinner. Stated feeling full at dinner, but tolerating. Received one dose Zofran prior to breakfast, no emesis. Occ'l pain when stomach full, received one dose IVP morphine just prior to change of shift. Calm and pleasant, no acute issues. Care continues.
[2017-07-12 20:33] VITALS: BP 110/64; PULSE 60; RESP 19; O2SAT 98
[2017-07-13] MEDS: metroNIDAZOLE Inj 500 MG in IV Premix 1 EACH IV SCH ×2 (00:45→08:04)
[2017-07-13] MEDS: MethylprednisoLONE Sodium Succinate 40 mg/mL Inj IVPUSH SCH ×3 (00:46→16:40)
[2017-07-13] MEDS: Dextrose 5% 0.9% NaCl 1,000 ML IV SCH ×3 (03:02→23:30)
[2017-07-13 05:17] VITALS: BP 110/63; PULSE 56; RESP 17; O2SAT 100
--- NOTE | 2017-07-13 06:06 | NUR ---
Negative N/V No N/V but some diarrhea and heartburn which he received Maalox Plus which was effective. VSS and he is in good spirits. WCTM
[2017-07-13] MEDS: Mesalamine 500 mg CR Capsule PO SCH ×4 (06:21→21:45)
--- NOTE | 2017-07-13 07:47 | PCM.PNSURG ---
Subjective Date of Service: Jul 13, 2017 Date of Service: Jul 13, 2017 Visit Information: Reason for Visit Crohn's Disease, Abdominal Pain,Wt Loss,Anemia Surgery/Surgery Date Post-Op Day # Date of Admission: Jul 08, 2017 at 20:54 Hospital Day # Subjective: Patient states that he is feeling much better than previous days. He states that he has some mild RLQ abdominal discomfort but denies any nausea or vomiting. Patient states that he had a few bloody bowel movements yesterday but denies any today. He states that he has a large appetite and has been eating well without any complaints. He is ambulating without difficulty. Postop General: No Complaints Gastrointestinal: Good Appetite, No N/V, Normal Bowel Movement Postop Activity: Ambulating Independently Objective Vital Sign- Last 8 Hours Date Time Temp Pulse Resp B/P Pulse Ox O2 Delivery O2 Flow Rate FiO2 07/13/17 05:17 36.8 56 17 110/63 100 Room Air Intake and Output- Last 8 Hour 07/13/17 Cumulative From/Thru 07:00 07/08/17 16:11 - 07/13/17 05:59 Intake Total 966 ml 39356 ml Output Total 800 ml 3825 ml Balance 166 ml 69426 ml Intake Oral 866 ml 4413 ml IV Total 100 ml 9178 ml Packed Cells 300 ml Output Urine Total 800 ml 3625 ml Emesis 200 ml # Voids 14 # Bowel Movements 3 6 General: Alert, Oriented X3, No Acute Distress Neck: Supple Lungs: Clear to Auscultation, Normal Air Movement Heart: Regular Rate/Rhythm, No Murmurs/Rubs/Gallops Abdomen: Soft, Non-tender, Normoactive bowel tones Neuro: Normal Gait, Normal Speech Result Diagram: 07/12/17 0535 07/12/17 0535 Assessment & Plan Impression David Maravilla is a 26 [id number] with Crohn's disease involving the terminal ileum and colon. Problems: Plan No acute surgical interventions required at this time. Patient can plan to follow up with GI outpatient. Resuscitation Status: CPR: Attempt Resuscitation Gia Erickson DO Jul 13, 2017 07:47
[2017-07-13] MEDS ORDERED: 0.9% Sodium Chloride 250 ML ONE (08:00)
[2017-07-13 08:26] VITALS: BP 107/63; PULSE 45; RESP 18; O2SAT 100
[2017-07-13 08:43] LABS: Mean Corpuscular Hemoglobin 19.6 pg (27.0-35.0)
[2017-07-13 08:44] LABS: BASOPHILS % (AUTO) 0.1 % (0-3); EOSINOPHILS % (AUTO) 0 % (0-5); MONOCYTES % (AUTO) 4.7 % (4-12); NEUTROPHILS % (AUTO) 90.6 % (40-74); Platelet Count 457 bil/L (150-400)
--- NOTE | 2017-07-13 09:02 | PCM.PNMED ---
Subjective Date of Service Jul 13, 2017 Subjective Patient seen and examined. He complains of back pain since morning when he woke up. 03/25. Vitals noted Exam Vital Signs Vital Sign - Last Date Time Temp Pulse Resp B/P Pulse Ox O2 Delivery O2 Flow Rate FiO2 07/13/17 08:26 36.5 45 18 107/63 100 Room Air 07/10/17 15:52 4 Intake and Output 07/12/17 07/12/17 07/13/17 Cumulative From/Thru 15:00 23:00 07:00 07/08/17 16:11 - 07/13/17 05:59 Intake Total 240 ml 729 ml 966 ml 09482 ml Output Total 1050 ml 800 ml 3825 ml Balance 240 ml -321 ml 166 ml 43135 ml Intake Oral 600 ml 866 ml 4413 ml IV Total 240 ml 129 ml 100 ml 9178 ml Packed Cells 300 ml Output Urine Total 1050 ml 800 ml 3625 ml Emesis 200 ml # Voids 14 # Bowel Movements 3 6 Exam General: Alert, Oriented X3, Cooperative, Cachectic Chest & Lungs: Clear to auscultation & percussion, No adventitious breath sounds, no crackles, no wheeze Cardiovascular: Normal S1, Normal S2, No Murmurs/Rubs/Gallops, Regular Rate/ Rhythm, Pulses: Radial (present and equal), Dorsalis Pedi (present and equal) Abdomen: Soft, mild tenderness in the right lower quad, no rebound or guarding, Non-distended, Normoactive bowel tones Back: tender to palpation between T11-T12.point tenderness Lymphatic: Lymph nodes Cervical and Axillary not palpable. Lab and Diagnostics Result Diagram: 07/13/17 0735 07/13/17 0735 X-Rays, CTs and MRIs 07/08/17 - CT ABDOMEN AND PELVIS WITH CONTRAST IMPRESSION: 1. Circumferential wall thickening with adjacent inflammatory stranding involving the terminal ileum, colon and rectum. Finding consistent with coloenteritis which is likely related to inflammatory bowel disease or infectious etiologies. 2. Slightly enlarged appendix which could be related to adjacent terminal ileitis, however early manifestation of appendicitis cannot be excluded by imaging. 3. Small amount of pericholecystic fluid. There is clinical concern for cholecystitis, then abdominal ultrasound should be performed for definitive characterization. 4. Nonspecific periportal edema. Approved by: Nadine Dalton MD, PhD on 07/08/2017 at 19:24 Additional Diagnostics Colonoscopy IMPRESSION: 1. Normal upper endoscopy, status post biopsy. 2. Rectosigmoid stricture which was able to transverse through with pediatric colonoscope, status post biopsy. 3. Severe marked erythema friable mucosa with pseudopolyps seen in the sigmoid colon and possibly a fistula that was seen there at 60 cm from the anus, status post biopsy. Assessment & Plan Acute Crohn's flair David Maravilla is a 26 yo male with a history of Crohn's disease who presents to the Emergency department c/o worsening Crohn's symptoms #. Acute on Chronic abdominal pain secondary to Crohn's colitis. Present on admission - Colonoscopy done, results as above - continue : empiric antibiotics with Levaquin and Flagyl IV, to be on remicade as tb ruled out, continue steroids - pain control with morphine - tapering steroids - surgery was consulted, recs: medical management - Gastroenterology on board, appreciate recs # lekocytosis - likely 2/2 to steroids - continue abx, will get procalc # Hyponatremia, Mild. Present on admission, resolved Likely represents hypovolemia based on patient's clinical picture - continue IV fluids with Normal saline # Malnutrition (moderate). Present on admission Albumin 3.3 and BMI 15.4. Patient has been having poor appetite - Nutritional consult requested - D5NS for now, switch to iv NS once patient tolerating orals # Chronic Microcytic Anemia Likely Iron deficiency anemia secondary to chronic slow GI bleeding - Iron studies ordered - consider Iron supplementations # Nicotine dependence Cessation discussed and encouraged. Patient states he is trying to quit - Nicotine patch upon request - Acetaminophen as needed for mild pain/fever/headache - Bowel regimen as needed - Antiemetic as needed Patient admitted under inpatient status with expected length of stay > 2 midnights for severity of present symptoms, complexities of treatment plan and risk for adverse event VTE Mechanical Devices: Intermittant Pneumatic CD Resuscitation Status: CPR: Attempt Resuscitation Time spent 35 mins Noble Graham MD Jul 13, 2017 09:02 Noble Graham MD Jul 13, 2017 09:02
[2017-07-13] MEDS: levoFLOXacin Inj 750 MG in IV Premix 1 EACH IV SCH (09:15)
--- NOTE | 2017-07-13 10:48 | PCM.PNMED ---
Subjective Date of Service Jul 13, 2017 Subjective GASTROENTEROLOGY PROGRESS NOTE: Attending Physician: Carrillo Hernandez MD Resident Physician: Ena Morocho DO Patient states he is doing well this morning with no acute events overnight. He reports improvement in abdominal pain with associated cramping particularly in the LLQ. He is tolerating his diet and denies bloody or dark tarry stool. Additionally he denies fever, chills, dizziness, and shortness of breath. Anxious to go home. Per nursing. patient with diarrhea overnight without obvious blood. Exam Vital Signs Vital Sign - Last Date Time Temp Pulse Resp B/P Pulse Ox O2 Delivery O2 Flow Rate FiO2 07/13/17 08:26 36.5 45 18 107/63 100 Room Air 07/10/17 15:52 4 Intake and Output 07/12/17 07/12/17 07/13/17 Cumulative From/Thru 14:59 22:59 06:59 07/08/17 16:11 - 07/13/17 05:59 Intake Total 240 ml 729 ml 966 ml 85272 ml Output Total 1050 ml 800 ml 3825 ml Balance 240 ml -321 ml 166 ml 23852 ml Intake Oral 600 ml 866 ml 4413 ml IV Total 240 ml 129 ml 100 ml 9178 ml Packed Cells 300 ml Output Urine Total 1050 ml 800 ml 3625 ml Emesis 200 ml # Voids 14 # Bowel Movements 3 6 Exam General: Very thin young male, appears malnourished but in no acute distress. Lungs: Clear to auscultation bilaterally with no crackles, wheezes, or rhonchi. Cardiovascular: Regular rate/rhythm. No murmurs/rubs/gallops Abdomen: Soft, non-distended, diffusely tender to palpation. No masses. Normoactive bowel tones. Extremities: Muscle wasting upper/lower extremities. No edema. Skin: Pale, warm and dry without obvious rashes or ulcerations. Neurological: AOx3, no focal deficit. Normal speech. IVs and Medications Medications Reviewed: Medications were reviewed in detail Lab and Diagnostics Laboratory Tests Test 07/13/17 07:35 White Blood Count 14.4th/mm3 (3.8-10.1) Red Blood Count 5.36mil/mm3 (4.40-5.80) Hemoglobin 10.5g/dL (13.8-17.2) Hematocrit 35.9% (41.0-50.0) Mean Corpuscular Volume 67.0fL (81-100) Mean Corpuscular Hemoglobin 19.6pg (27.0-35.0) Mean Corpuscular Hemoglobin Concent 29.2% (32.0-37.0) Red Cell Distribution Width 20.4% (12.3-15.4) Platelet Count 457bil/L (150-400) Neutrophils (%) (Auto) 90.6% (40-74) Lymphocytes (%) (Auto) 4.3% (14-46) Monocytes (%) (Auto) 4.7% (4-12) Eosinophils (%) (Auto) 0% (0-5) Basophils (%) (Auto) 0.1% (0-3) Sodium Level 137mEq/L (134-144) Potassium Level 5.0mEq/L (3.5-5.2) Chloride Level 99mEq/L (97-108) Carbon Dioxide Level 24mmol/L (18-29) Blood Urea Nitrogen 11mg/dL (6-20) Creatinine 0.52mg/dL (0.76-1.27) Estimat Glomerular Filtration Rate 208mL/min (>59) Glucose Level 114mg/dL (60-99) Calcium Level 9.2mg/dL (8.5-10.1) Total Bilirubin 0.2mg/dL (0.0-1.2) Aspartate Amino Transf (AST/SGOT) 16U/L (0-50) Alanine Aminotransferase (ALT/SGPT) 9U/L (0-44) Alkaline Phosphatase 67U/L (25-150) Total Protein 7.1g/dL (6.4-8.4) Albumin 3.5g/dL (3.4-5.0) Microbiology 07/08/17 Stool PCR- Negative . Result Diagram: 07/13/17 0735 07/13/17 0735 X-Rays, CTs and MRIs 07/08/17 - CT ABDOMEN AND PELVIS WITH CONTRAST IMPRESSION: 1. Circumferential wall thickening with adjacent inflammatory stranding involving the terminal ileum, colon and rectum. Finding consistent with coloenteritis which is likely related to inflammatory bowel disease or infectious etiologies. 2. Slightly enlarged appendix which could be related to adjacent terminal ileitis, however early manifestation of appendicitis cannot be excluded by imaging. 3. Small amount of pericholecystic fluid. There is clinical concern for cholecystitis, then abdominal ultrasound should be performed for definitive characterization. 4. Nonspecific periportal edema. Approved by: Nadine Dalton MD, PhD on 07/08/2017 at 19:24 07/11/17 - X-RAY CHEST, TWO VIEWS IMPRESSION: No acute cardiopulmonary disease. No active TB on chest x-ray. Approved by: Jennifer Chavez M.D. on 07/11/2017 at 18:05 . Additional Diagnostics 07/10/2017 EGD and COLONOSCOPY IMPRESSION: 1. Normal upper endoscopy, status post biopsy. 2. Rectosigmoid stricture which was able to transverse through with pediatric colonoscope, status post biopsy. 3. Severe marked erythema friable mucosa with pseudopolyps seen in the sigmoid colon and possibly a fistula that was seen there at 60 cm from the anus, status post biopsy. RECOMMENDATION: 1. Await pathology results. 2. General Surgery consultation. Luís Loredo MD 07/10/17 1535 . Assessment & Plan 26-year-old male with a history of Crohn's disease diagnosed at age 18 who presented to the ED with the complaint of worsening abdominal pain, cramping and bloody diarrhea for the last 3-6 months. Acute Crohn's flair with possible enterocolonic fistula. - Normal upper endoscopy and colonoscopy significant for a rectosigmoid stricture, severe erythema with friable mucosa and pseudopolyps in the sigmoid colon as well as a possible Entero-[place] fistula - Stop antibiotics (rec'd 5 days of ciprofloxacin and metronidazole) - Continue Pentasa 1g po qid, IV steroids, 20mg IV q 8 - TB serologies, if negative then start Remicaide - Per General Surgery, patient not a surgical candidate at this time. - GI followup in 2 weeks Iron Deficiency Anemia - Continue iron supplementation Moderate Malnutrition. - Calorie count with consideration for TPN pending calorie count results . Pain Evaluation: Adequate Pain Control VTE Mechanical Devices: Intermittant Pneumatic CD Resuscitation Status: CPR: Attempt Resuscitation Ena Morocho DO Jul 13, 2017 09:37
--- NOTE | 2017-07-13 12:00 | NUR ---
Post Hospital Follow Up: Schedule [facility]idency [facility] appointment for patient with on 07/21/17 check in @ 145PM for a 2PM appointment. Hospital follow up.
--- NOTE | 2017-07-13 17:54 | NUR ---
Activity/Pain/GI Pt up and ambulating hallway at start of shift. AT ~0715, leaning against his door in pain. Stating his back hurt, "must've tweaked my back somehow." Kpad ordered with minimal effect; present in later morning and was able to give massage, pt stating helped. Later c/o abd pain/cramping. Stated decreased in BM since just prior to change of shift. Pt in afternoon with BM with bright blood tinge. Stated usually was dark in color. aware - H&H f/u in AM. Pt tolerating diet. Continues to ambulate hallway. Calm and pleasant. Care continues.
--- NOTE | 2017-07-13 17:58 | NUR ---
[facility] paperwork Pt handed this RN [facility] paperwork. Per MD LAILA to fill out. MD made aware and stated would fill out in AM. Paperwork placed in front of chart. sanitation truck driver made aware. Pt also aware and enc to assist with reminding MD in AM re: papers. This RN will pass on to NOC shift re: this as well.
[2017-07-13 19:45] VITALS: BP 103/68; PULSE 68; RESP 18; O2SAT 99
[2017-07-14] MEDS: MethylprednisoLONE Sodium Succinate 40 mg/mL Inj IVPUSH SCH ×2 (00:57→08:25)
[2017-07-14 06:02] VITALS: BP 96/55; PULSE 54; RESP 18; O2SAT 99
[2017-07-14 06:33] LABS: BASOPHILS % (AUTO) 0 % (0-3); EOSINOPHILS % (AUTO) 0.1 % (0-5); MONOCYTES % (AUTO) 4.6 % (4-12); Mean Corpuscular Volume 66.7 fL (81-100); NEUTROPHILS % (AUTO) 90.7 % (40-74); Platelet Count 390 bil/L (150-400)
--- NOTE | 2017-07-14 06:33 | NUR ---
Rest Patient interested in resting overnight, unable to sleep during day and exhausted. Some pain, but trying to rest rather than receive IV pain medication so he can go home. Independent in room with steady gait.
--- NOTE | 2017-07-14 07:53 | PCM.PNMED ---
Subjective Date of Service Jul 14, 2017 Subjective GASTROENTEROLOGY PROGRESS NOTE: Attending Physician: Luís Loredo MD Resident Physician: Ena Morocho DO No acute events overnight. Patient states that he is doing well and without complaint. He reported dark/bloody bowel movement yesterday afternoon and was held overnight for observation. Today he reports significant improvement in his abdominal pain and denies bloody or dark colored stool. He states that he is pleased with the return of his appetite and looking forward to eating breakfast. He denies fever, chills, difficulty breathing, abdominal cramping, nausea or vomiting. Exam Vital Signs Vital Sign - Last Date Time Temp Pulse Resp B/P Pulse Ox O2 Delivery O2 Flow Rate FiO2 07/14/17 06:02 36.7 54 18 96/55 99 Room Air 07/10/17 15:52 4 Intake and Output 07/13/17 07/13/17 07/14/17 Cumulative From/Thru 15:00 23:00 07:00 07/08/17 16:11 - 07/14/17 06:03 Intake Total 275 ml 1370 ml 300 ml 92878 ml Output Total 1900 ml 1650 ml 7375 ml Balance 275 ml -530 ml -1350 ml 8461 ml Intake Oral 1370 ml 300 ml 6083 ml IV Total 275 ml 9453 ml Packed Cells 300 ml Output Urine Total 1900 ml 1650 ml 7175 ml Emesis 200 ml # Voids 14 # Bowel Movements 4 2 12 Exam General: Very thin young male, appears malnourished but in no acute distress. Lungs: Clear to auscultation bilaterally with no crackles, wheezes, or rhonchi. Cardiovascular: Regular rate/rhythm. No murmurs/rubs/gallops Abdomen: Soft, non-distended, mild tenderness to palpation diffusely, no rebound or guarding. No masses. Normoactive bowel tones. Extremities: Muscle wasting upper/lower extremities. No edema. Skin: Warm and dry without obvious rashes or ulcerations. Neurological: AOx3, no focal deficit. Normal speech. IVs and Medications Medications Reviewed: Medications were reviewed in detail Lab and Diagnostics Laboratory Tests Test 07/14/17 05:45 White Blood Count 10.8th/mm3 (3.8-10.1) Red Blood Count 4.84mil/mm3 (4.40-5.80) Hemoglobin 9.7g/dL (13.8-17.2) Hematocrit 32.3% (41.0-50.0) Mean Corpuscular Volume 66.7fL (81-100) Mean Corpuscular Hemoglobin 20.0pg (27.0-35.0) Mean Corpuscular Hemoglobin Concent 30.0% (32.0-37.0) Red Cell Distribution Width 20.3% (12.3-15.4) Platelet Count 390bil/L (150-400) Neutrophils (%) (Auto) 90.7% (40-74) Lymphocytes (%) (Auto) 4.3% (14-46) Monocytes (%) (Auto) 4.6% (4-12) Eosinophils (%) (Auto) 0.1% (0-5) Basophils (%) (Auto) 0% (0-3) Microbiology 07/08/17 Campylobacter (PCR) -Negative Result Diagram: 07/14/17 0545 07/13/17 0735 X-Rays, CTs and MRIs 07/08/17 - CT ABDOMEN AND PELVIS WITH CONTRAST IMPRESSION: 1. Circumferential wall thickening with adjacent inflammatory stranding involving the terminal ileum, colon and rectum. Finding consistent with coloenteritis which is likely related to inflammatory bowel disease or infectious etiologies. 2. Slightly enlarged appendix which could be related to adjacent terminal ileitis, however early manifestation of appendicitis cannot be excluded by imaging. 3. Small amount of pericholecystic fluid. There is clinical concern for cholecystitis, then abdominal ultrasound should be performed for definitive characterization. 4. Nonspecific periportal edema. Approved by: Nadine Dalton MD, PhD on 07/08/2017 at 19:24 07/11/17 - X-RAY CHEST, TWO VIEWS IMPRESSION: No acute cardiopulmonary disease. No active TB on chest x-ray. Approved by: Jennifer Chavez M.D. on 07/11/2017 at 18:05 . Additional Diagnostics 07/10/2017 EGD and COLONOSCOPY IMPRESSION: 1. Normal upper endoscopy, status post biopsy. 2. Rectosigmoid stricture which was able to transverse through with pediatric colonoscope, status post biopsy. 3. Severe marked erythema friable mucosa with pseudopolyps seen in the sigmoid colon and possibly a fistula that was seen there at 60 cm from the anus, status post biopsy. RECOMMENDATION: 1. Await pathology results. 2. General Surgery consultation. Luís Loredo MD 07/10/17 1535 . Assessment & Plan 26-year-old male with a history of Crohn's disease diagnosed at age 18 who presented to the ED with the complaint of worsening abdominal pain, cramping and bloody diarrhea for the last 3-6 months. Acute Crohn's flair with possible enterocolonic fistula. - Normal upper endoscopy and colonoscopy significant for a rectosigmoid stricture, severe erythema with friable mucosa and pseudopolyps in the sigmoid colon as well as a possible Entero-[place] fistula - Continue ciprofloxacin and metronidazole to complete 14day course (today is day #6) - Continue Pentasa 1g po qid - Change to oral prednisone 60mg daily for two weeks, then taper - TB serologies, if negative then start Remicaide - Per General Surgery, patient not a surgical candidate at this time. - GI followup in 2 weeks Iron Deficiency Anemia - Continue iron supplementation Moderate Malnutrition. - Recommend outpatient followup with [employer] - Followup with PCP in 2 weeks VTE Mechanical Devices: Intermittant Pneumatic CD Resuscitation Status: CPR: Attempt Resuscitation Ena Morocho DO Jul 14, 2017 07:53
[2017-07-14] MEDS: Mesalamine 500 mg CR Capsule PO SCH ×2 (08:25→11:49)
[2017-07-14 08:35] VITALS: BP 103/62; PULSE 57; RESP 16; O2SAT 100
--- NOTE | 2017-07-14 11:14 | NUR ---
Social Work- Readiness for Discharge/Multidisciplinary Rounds Data: EMR reviewed. Pt is on day 6 of hospitalization for crohns disease, abdominal pain, weight loss. Pt discussed in multidisciplinary rounds, pt is likely to d/c in 1-2 days, potentially today. Pt's [facility] HO is active at this time and showing in pt portal. GI is following. requested that pt's new PCP complete pt's [facility] paperwork. SW scheduled hospital follow up at res. clinic on July 21. Information placed in d/c instructions. Pt informed of appointment at bedside. [facility] paperwork discussed with pt at bedside. In multidisciplinary rounds MD requested that pt's new PCP complete [facility] paperwork. SW confirmed with pt that the paperwork is not due until August 15. Pt is agreeable to PCP completing this because the paperwork is not an urgent need. Pt thought that the paperwork was due July 15 rather than August 15. Pt is agreeable to d/c when medically stable, reports that he will take the bus home at time of discharge. No additional d/c planning needs identified at this time. SW will continue to follow. Assessment: Pt who is capable of self-care despite increased weakness Plan: Pt likely to d/c home with his family via bus. Pt is scheduled at residency clinic for PCP hospital follow up. SW will continue to follow for any additional needs. KEILY Martinez
--- NOTE | 2017-07-14 11:46 | PCM.DIMED ---
Discharge Instructions Date of Service Jul 14, 2017 Dates of Hospitalization Jul 08, 2017 at 20:54 Discharge Diagnosis Discharge Diagnosis Crohn's flare Medication Instructions Additional med instructions Prednisone needs to be tapered after seen by GI and PCP Activity Discharge Activity: Limited until seen by PCP Call your provider Call your provider for: Fever or Chills, Shortness of breath, Excessive diarrhea Patient Instructions Provider: Luís Loredo MD Follow-up in: 2 weeks Noble Graham MD Jul 14, 2017 11:46
[2017-07-14] MEDS: Dextrose 5% 0.9% NaCl 1,000 ML IV SCH (11:49)
[2017-07-14] MEDS ORDERED: PRE20 PO (11:50)
[2017-07-14] MEDS ORDERED: CIPR-231 PO (11:50)
[2017-07-14] MEDS ORDERED: METR500T PO (11:50)
[2017-07-14] MEDS ORDERED: MESA500C PO (11:50)
--- NOTE | 2017-07-14 11:55 | PCM.DC.MED ---
Discharge Summary Date of Service Jul 14, 2017 Dates of Hospitalization Date of Hospital Admission Jul 08, 2017 at 20:54 Date of Discharge: Jul 14, 2017 Providers: Admitting Physician: Jim Granados MD Primary Care Physician: Juliane Attending Physician: Rene Graham MD Diagnosis at Time of Discharge Diagnosis at Time of Discharge Crohn's flare Procedures XRay, CTs & MRIs 07/08/17 - CT ABDOMEN AND PELVIS WITH CONTRAST IMPRESSION: 1. Circumferential wall thickening with adjacent inflammatory stranding involving the terminal ileum, colon and rectum. Finding consistent with coloenteritis which is likely related to inflammatory bowel disease or infectious etiologies. 2. Slightly enlarged appendix which could be related to adjacent terminal ileitis, however early manifestation of appendicitis cannot be excluded by imaging. 3. Small amount of pericholecystic fluid. There is clinical concern for cholecystitis, then abdominal ultrasound should be performed for definitive characterization. 4. Nonspecific periportal edema. Approved by: Nadine Dalton MD, PhD on 07/08/2017 at 19:24 07/11/17 - X-RAY CHEST, TWO VIEWS IMPRESSION: No acute cardiopulmonary disease. No active TB on chest x-ray. Approved by: Jennifer Chavez M.D. on 07/11/2017 at 18:05 . Other Diagnostics 07/10/2017 EGD and COLONOSCOPY IMPRESSION: 1. Normal upper endoscopy, status post biopsy. 2. Rectosigmoid stricture which was able to transverse through with pediatric colonoscope, status post biopsy. 3. Severe marked erythema friable mucosa with pseudopolyps seen in the sigmoid colon and possibly a fistula that was seen there at 60 cm from the anus, status post biopsy. RECOMMENDATION: 1. Await pathology results. 2. General Surgery consultation. Luís Loredo MD 07/10/17 1535 . Brief History David Maravilla is a 26-year-old male with a history of Crohn's disease diagnosed at age 18 and iron deficiency anemia who presented to the ED with the complaint of worsening abdominal pain, cramping and bloody diarrhea for the last 3-6 months. Associated symptoms include chills, subjective fevers, nausea, dizziness, decreased appetite with weight loss and generalized weakness. He states that he has been off of all medication for about a year due to lack of health insurance. Over the course of the last year his symptoms have gradually increased and now he states that he can barely do anything. He notes shortness of breath and fatigue with minimal activity. On average he states that he has four bowel movements per day that are bloody and several more without noticeable blood. 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 He describes his abdominal pain as sharp and nonradiating. The pain is not well localized, areas of intensity alternate and he has not appreciated any aggravating or alleviating factors. Currently he reports maximum pain in the LLQ but at presentation he reported pain worse in the RLQ. However, imaging is most consistent with inflammatory bowel disease. Patient has been without medical care for approximately one year. He appears malnourished clinically this is reinforced by low albumin, he also has an iron deficiency anemia. He last saw a Supervisor Train Operations when he was 18 years old. He was on Pentasa but could not swallow the large pills and stopped taking it years ago. Hospital Course 26-year-old male with a history of Crohn's disease diagnosed at age 18 who presented to the ED with the complaint of worsening abdominal pain, cramping and bloody diarrhea for the last 3-6 months. Acute Crohn's flair with possible enterocolonic fistula. - Normal upper endoscopy and colonoscopy significant for a rectosigmoid stricture, severe erythema with friable mucosa and pseudopolyps in the sigmoid colon as well as a possible Entero-[place] fistula - Continue ciprofloxacin and metronidazole to complete 14day course (today is day #6) - Continue Pentasa 1g po qid - Change to oral prednisone 60mg daily for two weeks, then taper - TB serologies, if negative then start Remicaide - Per General Surgery, patient not a surgical candidate at this time. - GI followup in 2 weeks Iron Deficiency Anemia - Continue iron supplementation Moderate Malnutrition. - Recommend outpatient followup with [employer] Operator - Followup with PCP in 2 weeks Exam Vital Signs (Last) Date Time Temp Pulse Resp B/P Pulse Ox O2 Delivery O2 Flow Rate FiO2 07/14/17 08:35 36.7 57 16 103/62 100 07/14/17 06:02 Room Air 07/10/17 15:52 4 Test 07/08/17 16:59 07/08/17 17:00 07/08/17 21:00 07/10/17 20:46 Erythrocyte Sedimentation Rate 35mm/hr (0-15) Reticulocyte Count,Calculated 1.0% (0.6-2.6) Magnesium Level 1.8mg/dL (1.6-2.6) Iron Level 16ug/dL (35-150) Total Iron Binding Capacity 278ug/dL (250-450) Percent Iron Saturation 6%sat (15-50) Unsaturated Iron Binding 261.5ug/dL Ferritin 22ng/mL (30-400) Lipase 16U/L (13-60) Hold [place] Top Tube Received (Received) Hold Urine Received (Received) Test 07/13/17 07:35 07/14/17 05:45 Sodium Level 137mEq/L (134-144) Potassium Level 5.0mEq/L (3.5-5.2) Chloride Level 99mEq/L (97-108) Carbon Dioxide Level 24mmol/L (18-29) Blood Urea Nitrogen 11mg/dL (6-20) Creatinine 0.52mg/dL (0.76-1.27) Estimat Glomerular Filtration Rate 208mL/min (>59) Glucose Level 114mg/dL (60-99) Calcium Level 9.2mg/dL (8.5-10.1) Total Bilirubin 0.2mg/dL (0.0-1.2) Aspartate Amino Transf (AST/SGOT) 16U/L (0-50) Alanine Aminotransferase (ALT/SGPT) 9U/L (0-44) Alkaline Phosphatase 67U/L (25-150) Total Protein 7.1g/dL (6.4-8.4) Albumin 3.5g/dL (3.4-5.0) Procalcitonin 0.03ng/mL (0.00-0.08) White Blood Count 10.8th/mm3 (3.8-10.1) Red Blood Count 4.84mil/mm3 (4.40-5.80) Hemoglobin 9.7g/dL (13.8-17.2) Hematocrit 32.3% (41.0-50.0) Mean Corpuscular Volume 66.7fL (81-100) Mean Corpuscular Hemoglobin 20.0pg (27.0-35.0) Mean Corpuscular Hemoglobin Concent 30.0% (32.0-37.0) Red Cell Distribution Width 20.3% (12.3-15.4) Platelet Count 390bil/L (150-400) Neutrophils (%) (Auto) 90.7% (40-74) Lymphocytes (%) (Auto) 4.3% (14-46) Monocytes (%) (Auto) 4.6% (4-12) Eosinophils (%) (Auto) 0.1% (0-5) Basophils (%) (Auto) 0% (0-3) Discharge Medications Discharge Medications Ciprofloxacin (Cipro) 500 Mg Tablet 500 MG PO BID Prescribed by: RENE GRAHAM MD Mesalamine (Pentasa) 500 Mg Capsule.er 1,000 MG PO QID Prescribed by: RENE GRAHAM MD Metronidazole (Flagyl) 500 Mg Tablet 500 MG PO Q8H Prescribed by: RENE GRAHAM MD Prednisone (PredniSONE) 20 Mg Tablet 60 MG PO DAILY Prescribed by: RENE GRAHAM MD As needed Acetaminophen (Extra Strength Non-Aspirin) 500 Mg Tablet 2 EACH PO Q4H PRN PRN For Pain (Reported) Additional med instructions Prednisone needs to be tapered after seen by GI and PCP Followup Plan Discharge Activity: Limited until seen by PCP Provider: Luís Loredo MD Follow-up in: 2 weeks Time spent 35 mins Rene Graham MD Jul 14, 2017 11:55
--- NOTE | 2017-07-14 12:25 | NUR ---
Social Work- Discharge Data: EMR reviewed. Pt to discharge today, discharge orders are active. Pt to discharge home with his family via bus. No additional social work or discharge planning needs. All updated and agreeable to plan. Assessment: Pt who is independent with ADLs and self-care Plan: Pt to discharge home with his family via bus. No additional social work or discharge planning needs. All updated and agreeable to plan. KEILY Martinez
--- NOTE | 2017-07-14 13:16 | NUR ---
Discharge Pt. discharged to home in stable condition. Walking with cane, accompanied by . Pt. has a bus pass and will take the bus home after he pics up his prescriptions at [facility] pharmacy. All prescriptions, instructions and belongings with Pt. 2 IVs dc'd prior to discharge. No questions or concerns at this time. Addendum: 07/14/17 at 1318 by MANDY MANCIA RN Discharge time of 1240.
--- NOTE | 2017-07-16 10:19 | PATH ---
SURGICAL PATHOLOGY Attending Physician:Luís Loredo MD CASE STATUS: Signed Out PATIENT NAME: ASHLEY MORRIS PID: [id number] : 1990 DATE COLLECTED:07/10/2017 00:00 SPECIMEN: 1: Duodenum, Biopsy 2: Stomach, Antrum, Biopsy 3: Gastric, Biopsy 4: Colon, Biopsy 5: Colon, Biopsy CLINICAL HISTORY: 1). DUODENAL BIPSY 2). ANTRUM BIOPSY 3). BODY BIOPSY (GASTRIC) 4). RECTO-SIGMOID STRICTURE BIOPSY 5). SIGMOID BIOPSY FINAL DIAGNOSIS: 1. Duodenum, Biopsy: Normal small bowel mucosa. Negative for inflammation, granulomas, dysplasia and malignancy. 2. Antrum, Biopsy: Chronic gastritis with noncaseating granulomas; histologic findings consistent with the clinical history of Crohn's disease. No definite evidence of active inflammation. Negative for dysplasia and malignancy. 3. Gastric Body, Biopsy: Body mucosa with mild chronic gastritis. Negative for granulomas, dysplasia and malignancy. 4. Rectosigmoid Stricture, Biopsy: Detached aggregate of ulcer/granulation tissue with no associated intact mucosa for evaluation. Negative for granulomas, dysplasia and malignancy. 5. Sigmoid Colon, Biopsy: Colonic mucosa with chronic colitis and distorted glandular architecture with focus of mucosal ulceration; histologic findings consistent with the clinical history of Crohn's disease. Negative for granulomas, dysplasia and malignancy. ICD10: K50.9 GROSS DESCRIPTION: The specimen is received in five formalin filled containers labeled with the patient's name. 1). The specimen is labeled "duod" and consists of 2 portions of tissue which aggregate to 0.2 x 0.2 x 0.2 CM. The specimen is entirely submitted in cassette 1A. 2). The specimen is labeled "antrum" and consists of 2 portions of tissue which aggregate to 0.4 x 0.2 x 0.2 CM. The specimen is entirely submitted in cassette 2A. 3). The specimen is labeled "body" and consists of 2 portions of tissue which aggregate to 0.3 x 0.3 x 0.2 CM. The specimen is entirely submitted in cassette 3A. 4). The specimen is labeled "recto-sigmoid" and consists of a 0.2 x 0.2 x 0.2 CM portion of tissue which is entirely submitted in cassette 4A. 5). The specimen is labeled "sigmoid" and consists of a 0.1 x 0.1 x 0.1 CM portion of tissue which is entirely submitted in cassette 5A. 07/14/2017UT ICD-9 CODES: CPT CODES: 1: 39783 2: 33756 3: 66081 4: 03049 5: 07769 Electronically Signed Out Kehinde Rajput MD, PhD [facility] [address], [place] [address] Technical component performed at [facility], [address], [place], [address]
== END 2017-07-14 12:40 | disposition home or self-care (01) | DRG 386 ==
LOC: SED 16:05 → OSC 20:54
PROVIDERS: ADMIT Hospitalist; ATTEND Internal Medicine
PROC: 0DBN8ZX Excision of Sigmoid Colon, Via Natural or Artificial Opening Endoscopic, Diagnostic (ICD-10-PCS; 2017-07-10)
PROC: 30233R1 Transfusion of Nonautologous Platelets into Peripheral Vein, Percutaneous Approach (ICD-10-PCS; 2017-07-10)
PROC: 30233N1 Transfusion of Nonautologous Red Blood Cells into Peripheral Vein, Percutaneous Approach (ICD-10-PCS; 2017-07-10)
PROC: 0DB98ZX Excision of Duodenum, Via Natural or Artificial Opening Endoscopic, Diagnostic (ICD-10-PCS; principal; 2017-07-10 15:00)
PROC: 0DB68ZX Excision of Stomach, Via Natural or Artificial Opening Endoscopic, Diagnostic (ICD-10-PCS; 2017-07-10 15:00)
DX: K50.813 Crohn's disease of both small and large intestine with fistula (principal); E44.0 Moderate protein-calorie malnutrition; D50.9 Iron deficiency anemia, unspecified; E87.1 Hypo-osmolality and hyponatremia; F17.210 Nicotine dependence, cigarettes, uncomplicated; D72.829 Elevated white blood cell count, unspecified; Z68.1 Body mass index [BMI] 19.9 or less, adult; E86.1 Hypovolemia; T38.0X5A Adverse effect of glucocorticoids and synthetic analogues, initial encounter